=== PATIENT | male | born 1950 | race Caucasian/White ===

== ENCOUNTER 2019-10-15 12:48 | Outpatient (RCR) | payer MEDICARE, OTHER, SELFPAY ==
[2019-07-29 12:31] LABS: INR 2.1
[2019-08-25 13:28] LABS: INR 2.8; Prothrombin Time 28.9 Seconds (11.1-14.7)
[2019-09-20 15:30] LABS: Prothrombin Time 30.7 Seconds (11.1-14.7)
[2019-09-29 14:00] LABS: INR 2.5; Prothrombin Time 26.4 Seconds (11.1-14.7)
[2019-10-15 14:16] LABS: INR 2.8; Prothrombin Time 29.1 Seconds (11.1-14.7)
== END 2019-10-27 23:59 | disposition home or self-care (01) ==
LOC: ANHLAB 12:48
PROVIDERS: PCP Family Medicine; Visit Provider Physician Assistant
DX: Z51.81 Encounter for therapeutic drug level monitoring (principal); Z79.01 Long term (current) use of anticoagulants
CPT/HCPCS: 36415; 85610

== ENCOUNTER 2020-01-26 10:49 | Outpatient (RCR) | payer MEDICARE, OTHER, SELFPAY ==
[2019-11-10 13:26] LABS: INR 2.5; Prothrombin Time 26.4 Seconds (11.1-14.7)
[2019-12-08 10:56] LABS: INR 2.8; Prothrombin Time 29.1 Seconds (11.1-14.7)
[2020-01-20 12:35] LABS: INR 3.2; Prothrombin Time 31.8 Seconds (11.1-14.7)
[2020-01-26 11:34] LABS: INR 2.8; Prothrombin Time 28.6 Seconds (11.1-14.7)
== END 2020-02-08 23:59 | disposition home or self-care (01) ==
LOC: ANHLAB 10:49
PROVIDERS: PCP Family Medicine; Visit Provider Physician Assistant
DX: Z51.81 Encounter for therapeutic drug level monitoring (principal); Z79.01 Long term (current) use of anticoagulants
CPT/HCPCS: 36415; 85610

== ENCOUNTER 2020-03-09 11:54 | Outpatient (CLI) | payer MEDICARE, OTHER, SELFPAY ==
[2020-03-09 12:31] LABS: Hematocrit 43.3 % (42.0-52.0); Hemoglobin 14.7 g/dL (14.0-18.0); Mean Corpuscular HGB Conc 33.9 g/dl (32-36); Mean Corpuscular Hemoglobin 32.2 pg (26-34); Mean Platelet Volume 10.4 fl (7.4-10.4); Platelet Count Result 289 k/mm3 (150-375); Red Blood Count 4.56 M/mm3 (4.6-6.20); Red Cell Distribution Width 13.2 % (11.5-14.5); White Blood Count 6.4 K/mm3 (4.5-10.0)
[2020-03-09 12:33] LABS: Add Urine Microscopic? NO; Appearance Urine Clear (Clear); Bilirubin Urine Negative (Negative); Blood Urine Negative (Negative); Color Urine Yellow (Yellow); Glucose Urine UA Negative (Negative); Ketones Urine Negative (Negative); Leukocyte Esterase Ur Negative LEU/UL (NEGATIVE); Nitrate Urine Negative (Negative); Protein Urine Negative (Negative); Specific Grav Ur 1.019 (1.001-1.035); Urobilinogen Urine Negative mg/dL (<2.0)
[2020-03-09 12:54] LABS: Alanine Aminotransferase 29 U/L (4-50); Alkaline Phosphatase 74 U/L (38-126); Aspartate Amino Transferase 33 U/L (17-59); Bilirubin,Total 0.7 mg/dL (0.2-1.3); Blood Urea Nitrogen 20 mg/dL (9-20); Calcium 8.4 mg/dL (8.4-10.2); Carbon Dioxide 25 mmol/L (22-30); Chloride 109 mmol/L (98-107); Cholesterol 215 mg/dL (0-200); Estimated Glomerular Filt Rate > 60; Glucose 112 mg/dL (75-110); HDL Direct 37 mg/dL; Sodium 138 mmol/L (137-145); Triglycerides 93 mg/dL (<150)
[2020-03-09 13:05] LABS: LDL Cholesterol Direct 131 mg/dL
== END 2020-03-09 11:55 | disposition home or self-care (01) ==
PROVIDERS: Visit Provider Physician Assistant
DX: D64.9 Anemia, unspecified (principal); E04.1 Nontoxic single thyroid nodule; E78.5 Hyperlipidemia, unspecified; R31.9 Hematuria, unspecified; Z86.711 Personal history of pulmonary embolism
CPT/HCPCS: 36415; 80053; 80061; 81003; 84443; 85027; 85610

== ENCOUNTER 2020-04-12 11:47 | Outpatient (RCR) | payer MEDICARE, OTHER, SELFPAY ==
[2020-02-15 11:58] LABS: INR 3.7; Prothrombin Time 35.8 Seconds (11.1-14.7)
[2020-03-01 11:09] LABS: INR 3.8; Prothrombin Time 37.1 Seconds (11.1-14.7)
[2020-03-09 12:51] LABS: INR 2.5; Prothrombin Time 26.7 Seconds (11.1-14.7)
[2020-03-17 12:21] LABS: INR 2.9; Prothrombin Time 29.7 Seconds (11.1-14.7)
[2020-04-12 12:17] LABS: INR 2.6
== END 2020-05-15 23:59 | disposition home or self-care (01) ==
LOC: ANHLAB 11:47
PROVIDERS: Visit Provider Physician Assistant
DX: Z51.81 Encounter for therapeutic drug level monitoring (principal); Z79.01 Long term (current) use of anticoagulants
CPT/HCPCS: 36415; 85610

== ENCOUNTER 2020-07-20 11:21 | Outpatient (RCR) | payer MEDICARE, OTHER, SELFPAY ==
[2020-05-16 10:09] LABS: INR 1.9; Prothrombin Time 21.2 Seconds (11.1-14.7)
[2020-06-01 12:16] LABS: INR 2.1; Prothrombin Time 23.4 Seconds (11.1-14.7)
[2020-06-22 12:48] LABS: INR 2.1
[2020-07-20 11:47] LABS: INR 2.1; Prothrombin Time 23.1 Seconds (11.1-14.7)
== END 2020-08-14 23:59 | disposition home or self-care (01) ==
LOC: ANHLAB 11:21
PROVIDERS: Visit Provider Physician Assistant
DX: Z51.81 Encounter for therapeutic drug level monitoring (principal); Z79.01 Long term (current) use of anticoagulants
CPT/HCPCS: 36415; 85610

== ENCOUNTER 2020-11-08 11:39 | Outpatient (RCR) | payer MEDICARE, OTHER, SELFPAY ==
[2020-08-30 13:57] LABS: INR 1.9; Prothrombin Time 22.2 Seconds (11.1-14.7)
[2020-10-05 13:48] LABS: INR 1.6; Prothrombin Time 19.2 Seconds (11.1-14.7)
[2020-10-20 12:34] LABS: INR 1.4; Prothrombin Time 17.3 Seconds (11.1-14.7)
== END 2020-11-28 23:59 | disposition home or self-care (01) ==
LOC: ANHLAB 11:39
PROVIDERS: Family Medicine; Visit Provider Physician Assistant
DX: Z51.81 Encounter for therapeutic drug level monitoring (principal); Z79.899 Other long term (current) drug therapy
CPT/HCPCS: 36415; 85610

== ENCOUNTER 2020-12-06 11:31 | Outpatient (RCR) | payer MEDICARE, OTHER, SELFPAY ==
[2020-12-06 12:00] LABS: INR 2.1; Prothrombin Time 23.8 Seconds (11.1-14.7)
== END 2021-03-06 23:59 | disposition home or self-care (01) ==
LOC: ANHLAB 11:31
PROVIDERS: Visit Provider Physician Assistant
DX: Z51.81 Encounter for therapeutic drug level monitoring (principal); Z79.01 Long term (current) use of anticoagulants
CPT/HCPCS: 36415; 85610

== ENCOUNTER 2021-03-29 11:28 | Outpatient (RCR) | payer MEDICARE, OTHER, SELFPAY ==
[2021-01-18 12:21] LABS: INR 1.7; Prothrombin Time 20.2 Seconds (11.1-14.7)
[2021-02-23 13:16] LABS: INR 2.8; Prothrombin Time 30.4 Seconds (11.1-14.7)
[2021-03-29 12:41] LABS: INR 1.8; Prothrombin Time 20.4 Seconds (11.1-14.7)
== END 2021-04-18 23:59 | disposition home or self-care (01) ==
LOC: ANHLAB 11:28
PROVIDERS: Visit Provider Physician Assistant
DX: Z51.81 Encounter for therapeutic drug level monitoring (principal); Z79.01 Long term (current) use of anticoagulants
CPT/HCPCS: 36415; 85610

== ENCOUNTER 2021-03-30 11:59 | Outpatient (CLI) | payer MEDICARE, OTHER, SELFPAY ==
[2021-03-30 12:22] LABS: Add Urine Microscopic? NO; Appearance Urine Clear (Clear); Bilirubin Urine Negative (Negative); Blood Urine Negative (Negative); Color Urine Yellow (Yellow); Glucose Urine UA Negative (Negative); Ketones Urine Negative (Negative); Leukocyte Esterase Ur Negative LEU/UL (NEGATIVE); Nitrate Urine Negative (Negative); Protein Urine Negative (Negative); Specific Grav Ur 1.018 (1.001-1.035); Urobilinogen Urine Negative mg/dL (<2.0)
[2021-03-30 12:23] LABS: Hemoglobin 14.3 g/dL (14.0-18.0); Mean Corpuscular HGB Conc 33.3 g/dl (32-36); Mean Corpuscular Hemoglobin 31.7 pg (26-34); Mean Corpuscular Volume 95.3 fl (80-100); Mean Platelet Volume 9.8 fl (7.4-10.4); Platelet Count Result 276 k/mm3 (150-375); Red Blood Count 4.51 M/mm3 (4.6-6.20); Red Cell Distribution Width 13.2 % (11.5-14.5); White Blood Count 6.1 K/mm3 (4.5-10.0)
[2021-03-30 12:42] LABS: Alanine Aminotransferase 29 U/L (4-50); Alkaline Phosphatase 63 U/L (38-126); Anion Gap 6 mmol/L (8-16); Aspartate Amino Transferase 36 U/L (17-59); Bilirubin,Total 1.2 mg/dL (0.2-1.3); Blood Urea Nitrogen 17 mg/dL (9-20); Calcium 8.8 mg/dL (8.4-10.2); Carbon Dioxide 25 mmol/L (22-30); Chloride 109 mmol/L (98-107); Cholesterol 204 mg/dL (0-200); Estimated Glomerular Filt Rate 54; Glucose 111 mg/dL (75-110); HDL Direct 48 mg/dL; Sodium 140 mmol/L (137-145); Triglycerides 95 mg/dL (<150)
[2021-03-30 12:53] LABS: LDL Cholesterol Direct 98 mg/dL
[2021-03-30 12:55] LABS: Hemoglobin A1C 5.9 % (<5.7)
== END 2021-03-30 12:00 | disposition home or self-care (01) ==
LOC: ANHLAB 12:03
PROVIDERS: Visit Provider Family Medicine
DX: E78.5 Hyperlipidemia, unspecified (principal); R73.01 Impaired fasting glucose; R53.83 Other fatigue; Z00.00 Encounter for general adult medical examination without abnormal findings
CPT/HCPCS: 36415; 80053; 80061; 81003; 83036; 84443; 85027

== ENCOUNTER 2021-07-03 13:35 | Outpatient (RCR) | payer MEDICARE, SELFPAY ==
[2021-04-26 12:29] LABS: INR 3.6; Prothrombin Time 34.9 Seconds (11.1-14.7)
[2021-05-09 12:08] LABS: Prothrombin Time 22.4 Seconds (11.1-14.7)
[2021-06-06 16:01] LABS: INR 2.1
[2021-07-03 14:23] LABS: Prothrombin Time 22.5 Seconds (11.1-14.7)
== END 2021-07-25 23:59 | disposition home or self-care (01) ==
LOC: ANHLAB 13:35
PROVIDERS: PCP Family Medicine; Visit Provider Physician Assistant
DX: Z51.81 Encounter for therapeutic drug level monitoring (principal); Z79.01 Long term (current) use of anticoagulants
CPT/HCPCS: 36415; 85610

== ENCOUNTER 2021-08-09 11:42 | Outpatient (RCR) | payer MEDICARE, OTHER, SELFPAY ==
[2021-08-09 12:47] LABS: INR 2.4; Prothrombin Time 25.5 Seconds (11.1-14.7)
== END 2021-11-07 23:59 | disposition home or self-care (01) ==
LOC: ANHLAB 11:42
PROVIDERS: PCP Family Medicine; Visit Provider Family Medicine
DX: Z51.81 Encounter for therapeutic drug level monitoring (principal); Z79.01 Long term (current) use of anticoagulants
CPT/HCPCS: 36415; 85610

== ENCOUNTER → 2021-10-17 08:31 | Outpatient (CLI) | payer MEDICARE, OTHER, SELFPAY ==
[2021-10-17 13:51] LABS: Influenza A QL RT-PCR Negative (Negative); Influenza B QL RT-PCR Negative (Negative); SARS-CoV-2 RNA PCR Negative
== END ==
PROVIDERS: PCP Family Medicine; Visit Provider Physician Assistant
DX: R68.89 Other general symptoms and signs (principal); M79.10 Myalgia, unspecified site; Z20.822 Contact with and (suspected) exposure to COVID-19
CPT/HCPCS: 87502; C9803; U0003; U0005

== ENCOUNTER 2021-12-17 12:11 | Outpatient (RCR) | payer MEDICARE, OTHER, SELFPAY ==
[2021-09-19 11:47] LABS: INR 1.6; Prothrombin Time 18.3 Seconds (11.1-14.7)
[2021-09-27 13:41] LABS: INR 2.2; Prothrombin Time 24.2 Seconds (11.1-14.7)
[2021-11-07 10:49] LABS: INR 2.4; Prothrombin Time 25.6 Seconds (11.1-14.7)
[2021-12-17 12:39] LABS: INR 2.5
== END 2021-12-18 23:59 | disposition home or self-care (01) ==
LOC: ANHLAB 12:11
PROVIDERS: PCP Family Medicine; Visit Provider Family Medicine
DX: Z51.81 Encounter for therapeutic drug level monitoring (principal); Z79.01 Long term (current) use of anticoagulants
CPT/HCPCS: 36415; 85610

== ENCOUNTER 2022-01-29 18:40 | Observation (INO) | payer MEDICARE, OTHER, SELFPAY ==
--- NOTE | ~2022-01-29 | US_ITS ---
US venous doppler [facility] DATE: 01/30/2022 11:06 INDICATION: Left calf pain. History of deep venous anastomosis 10 years ago. TECHNIQUE: Real-time and color flow imaging and Doppler analysis of the veins of both lower extremiti es COMPARISON: 09/26/2016 right lower extremity venous duplex examination 03/09/2014 bilateral lower extremity venous duplex examination FINDINGS: Right leg: Right greater saphenous vein is patent. There is spontaneous and phasic flow and normal augmentation and color flow signal and normal compression of the deep veins of the right lower extremity. Left leg: The left greater saphenous vein is patent. There is spontaneous and phasic flow and normal augmentati on and color flow signal and normal compression of the left femoral, popliteal and posterior tibial v eins. There is incomplete compression of the left peroneal trunk IMPRESSION: Left peroneal trunk partial thrombosis Reviewed, dictated and finalized at [facility]. Reviewed, dictated and finalized at location B.
--- NOTE | ~2022-01-29 | CT_ITS ---
EXAMINATION: CT brain wo con DATE: 01/29/2022 19:05 INDICATION: syncopal episode/hi/coumadin TECHNIQUE: Computed tomography (CT) of the head was performed without intravenous contrast. The mA wa s adjusted according to patient size. Iterative reconstruction technique was employed. The dose-lengt h product was 605.33 mGy-cm. COMPARISON: 01/21/2004. FINDINGS: No acute intracranial hemorrhage or extra-axial fluid collection. No hydrocephalus, mass, or herniation. No acute ischemic infarct. Unremarkable dural venous sinus attenuation. No acute osseous abnormality. The aerated spaces are clear. Moderate atrophy. Mild chronic white matter change. Intracranial arterial calcifications. IMPRESSION: No acute intracranial process. Reviewed, dictated and finalized at location K.
--- NOTE | ~2022-01-29 | XR_ITS ---
EXAMINATION: XR knee LT 3V DATE: 01/31/2022 13:42 INDICATION: Left knee pain. TECHNIQUE: 3 views of left knee were obtained. COMPARISON: None. FINDINGS: There is varus angulation at the knee. No fracture. 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 There is a modera te-sized knee joint effusion. There is a loose body in the knee joint posteriorly. IMPRESSION: 1. Moderate left knee osteophytes. 2. Moderate-sized left knee joint effusion with loose body. Reviewed, dictated and finalized at location A.
--- NOTE | ~2022-01-29 | CT_ITS ---
Patient Name: Patient Name MR#: Patient MRN Accession#: Accession Numbers EXAMINATION: CTA brain carotid DATE: 01/30/2022 18:28 INDICATION: Occluded vertebral artery on prior carotid ultrasound. Acute left cerebellar infarction o n prior brain MR. TECHNIQUE: Computed tomographic angiography (CTA) of the head was performed without and with 100 mL O mnipaque-350 intravenous contrast. CTA of the neck was performed with intravenous contrast. The dose- length product was 1845.80 mGy-cm. Maximum intensity projection and volume rendered 3D-reconstruction s were created by the technologist on a separate workstation. COMPARISON: Carotid ultrasound 01/30/2022. MR brain, 01/30/2022. CT brain 01/29/2022. FINDINGS: CTA NECK: Aortic arch and proximal great vessels: Unremarkable. Right common carotid, carotid bifurcation, and internal carotid artery: Minimal minimal noncalcified plaque in the common carotid. Minimal calcified and noncalcified plaque in the carotid bulb.There is 0% stenosis of the proximal right internal carotid artery relative to normal distal artery lumen diam eter (NASCET criteria). Left common carotid, carotid bifurcation, and internal carotid artery: Minimal minimal noncalcified p laque in the common carotid. Minimal calcified and noncalcified plaque in the carotid bulb. There is 0 % stenosis of the proximal left internal carotid artery relative to normal distal artery lumen diam eter (NASCET criteria). Vertebral arteries: Calcified and noncalcified plaque at the origin of the right vertebral artery cau sing approximately 50% stenosis, otherwise patent. The right vertebral artery is dominant. Occlusion of the left vertebral artery 1 cm distal to its takeoff. Reconstitution of the left vertebral artery at the level of C1 with diminished vessel caliber. Other findings: Redemonstration of the right thyroid mass, prior recommendations are unchanged. CTA HEAD: No large vessel occlusion, aneurysm, high flow vascular malformation, nidus or extravasation. CT brain: Acute left cerebellar infarct. No intracranial hemorrhage, mass, or hydrocephalus. Stable chronic fin dings. IMPRESSION: 1. CTA head: Negative for acute intracranial large vessel occlusion. Acute left cerebellar infarct a s noted in the previous MR brain. 2. CTA neck: Occlusion of the left vertebral artery, 1 cm distal to its origin to the level of C1. 3. 0% stenosis at the carotid bifurcations. Reviewed, dictated and finalized at location K. IMPRESSION: 1. CTA head: Negative for acute intracranial large vessel occlusion. Acute lef t cerebellar infarct as noted in the previous MR brain. 2. CTA neck: Occlusion of the left vertebral artery, 1 cm distal to its origin to the level of C1. 3. 0% stenosis at the carotid bifurcations.
--- NOTE | ~2022-01-29 | CT_ITS ---
EXAMINATION: CT cervical spine wo con DATE: 01/29/2022 19:05 INDICATION: fall/hi/coumain TECHNIQUE: Computed tomography (CT) of the cervical spine was performed without intravenous contrast. Automated exposure control and iterative reconstruction technique were employed. The dose-length pro duct was 511.60 mGy-cm. COMPARISON: None FINDINGS: Counting reference: Craniocervical junction. There are seven cervical type vertebral bodies. Anatomic Variants: None. Vertebral Body Alignment: 2 mm anterolisthesis of C3 on C4, likely on a degenerative basis. Focal re versal of the cervical lordosis centered at C4-5. Craniocervical junction: Moderate degenerative change. Alignment intact. Osseous structures/fracture: No evidence of a lytic or blastic process in the visualized spine. N o evidence of acute fracture. Cervical soft tissues: 3.2 cm heterogeneous right thyroid lobe mass. Likely dilation of the aortic arch, incompletely evaluated. Degenerative changes: Multilevel severe degenerative disc disease. Multilevel severe bilateral neural foraminal narrowing. No severe central canal stenosis. IMPRESSION: No acute fracture or traumatic malalignment in the cervical spine. 3.2 cm right thyroid lobe mass, re commend nonemergent outpatient thyroid ultrasound for further evaluation. Reviewed, dictated and finalized at location K. IMPRESSION: No acute fracture or traumatic malalignment in the cervical spine. 3.2 cm right thyroid lobe mass, recommend nonemergent outpatient thyroid ultrasound for fur ther evaluation.
--- NOTE | ~2022-01-29 | MR_ITS ---
EXAMINATION: MR brain/brain stem wo con DATE: 01/30/2022 07:33 INDICATION: Status post fall. Patient on Coumadin. TECHNIQUE: Magnetic resonance imaging (MRI) of the brain and brainstem was performed without intraven ous contrast. Sequences included sagittal and axial T1-weighted SE, axial diffusion-weighted FS SE, a xial T2*-weighted GRE, axial T2-weighted FLAIR Propeller, and axial T2-weighted Propeller. Apparent d iffusion coefficient (ADC) maps were created. COMPARISON: CT dated 01/29/2022. FINDINGS: There is an acute left cerebellar infarction. Brain parenchymal volume is normal. There are scattered mild periventricular and subcortical white matter changes, most likely related to small ve ssel ischemic disease (microangiopathy). No ventriculomegaly or midline shift. Midline sagittal image s are normal without abnormality of the craniovertebral junction. Sella turcica is unremarkable. Sinu ses are unremarkable. Orbits are symmetric. Flow-voids in the major intracerebral arteries are unrema rkable. IMPRESSION: 1. Acute left cerebellar infarction. 2: Chronic age-related findings. Dr. Oren Ornelas discussed with the patient's nurse, Kelly, at 01/30/2022 08:17 CDT. Reviewed, dictated and finalized at location A. IMPRESSION: 1. Acute left cerebellar infarction. 2: Chronic age-related findings. Dr. Oren Ornelas discussed with the patient's nurse, Kelly, at 01/30/2022 08:17 CD T.
--- NOTE | ~2022-01-29 | US_ITS ---
EXAMINATION: US carotid duplex BI DATE: 01/30/2022 11:11 INDICATION: Incomplete. CVA. TECHNIQUE: Grayscale, color Doppler, and pulsed Doppler images of the cervical carotid arteries were obtained. The degree of vessel stenosis is placed in one of the following categories: normal, <50%, 5 0-69%, >=70% but less than near-occlusion, near-occlusion, or total occlusion. Note that percent sten osis relative to normal distal artery lumen diameter is indirectly measured from velocity measurement s as described by Saran, et al. Radiology 2003; 229:340-346. Notes: Normal: Peak systolic velocity <125 centimeters/sec and no plaque <50%. Peak systolic velocity <125 ( EDV <40; ICA/CCA PSV ratio <2.0; used these factors only a tandem lesions or low cardiac output or co ntralateral disease) 50-69 %: PSV 125-230 (EDV 40-100; ratio 2-4) >= 70% but less than near occlusion: PSV greater than 230 (EDV > 100; ratio> 4.0) Near Occlusion: PSV that is variable; markedly narrowed lumen Occlusion: Absent flow on color/spectral Doppler and no lumen on jj scale. COMPARISON: None. FINDINGS: There is a complex 4 cm right thyroid mass. RIGHT: The right common carotid artery (CCA) peak systolic velocity (PSV) is 74 cm/s. The right internal car otid artery (ICA) PSV is 82 cm/s. The right ICA end-diastolic velocity (EDV) is 20 cm/s. The right IC A/CCA PSV ratio is 1.1. The external carotid artery (ECA) PSV is 134 cm/s. There is antegrade flow in the right vertebral artery. LEFT: The left CCA PSV is 85 cm/s. The left ICA PSV is 80 cm/s. The left ICA EDV is 23 cm/s. The left ICA/C CA PSV ratio is 0.9. The ECA PSV is 126 cm/s. No flow identified in the left vertebral artery which appears occluded. IMPRESSION: 1. Less than 50% stenosis in the right internal carotid artery by sonographic criteria. 2. Less than 50% stenosis in the left internal carotid artery by sonographic criteria. 3: Occluded left vertebral artery. 4: Complex 4 cm right thyroid mass. Dedicated right thyroid ultrasound recommended for further asses sment. Reviewed, dictated and finalized at location A. IMPRESSION: 1. Less than 50% stenosis in the right internal carotid artery by sonographic c riteria. 2. Less than 50% stenosis in the left internal carotid artery by sonographic cr iteria. 3: Occluded left vertebral artery. 4: Complex 4 cm right thyroid mass. Dedicated right thyroid ultrasound recomme nded for further assessment.
[2022-01-29 18:48] VITALS: BP 188/99; PULSE 62; RESP 20; O2SAT 95
--- NOTE | 2022-01-29 18:57 | ECG_ITS ---
Measurements Intervals [place] Rate: 62 P: 15 WV: 176 QRS: -16 QRSD: 101 T: 22 QT: 418 QTc: 426 Interpretive Statements SINUS RHYTHM NORMAL ECG Electronically Signed On 01-29-2022 20:04:53 CDT by Miguel Angel Pollack D.O.
[2022-01-29 19:11] VITALS: PULSE 62
[2022-01-29 19:27] LABS: Basophils Absolute Auto 0.1 K/mm3 (0.0-0.1); Basophils Percent Auto 0.8 % (0.2-1.2); Eosinophils Absolute Auto 0.2 K/mm3 (0-0.3); Eosinophils Percent Auto 2.5 % (0-4.4); Hemoglobin 15.1 g/dL (14.0-18.0); Immature Granulocyte Absolute 0.03 K/mm3 (0.00-0.031); Immature Granulocyte Percent A 0.4 % (0-0.5); Lymphocytes Absolute Auto 2.96 K/mm3 (0.9-3.2); Mean Corpuscular HGB Conc 33.6 g/dl (32-36); Mean Corpuscular Hemoglobin 31.9 pg (26-34); Mean Corpuscular Volume 94.9 fl (80-100); Mean Platelet Volume 9.7 fl (7.4-10.4); Monocytes Absolute Auto 0.8 K/mm3 (0.1-0.6); Neutrophils Absolute Auto 4.4 K/mm3 (1.3-6.7); Neutrophils Percent Auto 52.3 % (45.5-73.1); Platelet Count Result 308 k/mm3 (150-375); Red Blood Count 4.74 M/mm3 (4.6-6.20); Red Cell Distribution Width 13.2 % (11.5-14.5); White Blood Count 8.5 K/mm3 (4.5-10.0)
[2022-01-29 19:29] VITALS: BP 231/103; PULSE 56; RESP 26; O2SAT 94
--- NOTE | 2022-01-29 19:29 | ED.GENADULT ---
HPI - General Adult General Chief complaint: Syncope Stated complaint: SYNCOPAL EPISODE Time Seen by Provider: 01/29/22 18:53 Source: patient Mode of arrival: EMS Limitations: no limitations History of Present Illness HPI narrative: 71-year-old male presented to the emergency department for evaluation after having a syncopal episode. Patient states that he was feeling well today prior to the episode. He states that he did had a brief onset of lightheaded and dizziness and then had a syncopal episode. Patient did fall back and strike his head. Patient thinks he was unconscious for approximately 1 minute. Patient does take Coumadin due to prior history of PE or DVT. Patient does have a small abrasion to the anterior scalp. Also has a skin tear to his left lateral elbow. Patient's only complaint is headache at this time. Upon arrival to the emergency room patient has nauseous and diaphoretic. Patient denies any associated chest pain or shortness of breath. Patient denies any abdominal pain. Patient denies any prior history of LA or CVA. Related Data Home Medications Medication Instructions Recorded Confirmed warfarin 2 mg PO 4XW 01/29/22 01/30/22 Caltrate with Vitamin D3 1 pill PO DAILY 01/30/22 01/30/22 Allergies Allergy/AdvReac Type Severity Reaction Status Date / Time Penicillins Allergy Unknown Unknown Verified 04/03/21 16:32 Review of Systems Review of Systems: CONSTITUTIONAL: Denies fever, chills, or sweats. EYES: Denies visual changes, redness, or discharge. ENT: Denies rhinorrhea, congestion, sore throat, or otalgia. CARDIOVASCULAR: Denies chest pain, palpitations, or edema. RESPIRATORY: Denies cough or dyspnea. GASTROINTESTINAL: See HPI GENITOURINARY: Denies dysuria or hematuria. SKIN: Denies rash or itching. MUSCULOSKELETAL: Denies back pain, joint pain, or myalgia. NEUROLOGIC: Headache but denies any numbness or weakness. [facility] Past Medical History Medical History (Updated 01/30/22 @ 07:32 by Cleve Dunawya MD) HLD (hyperlipidemia) 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 glucose) half-way (current) use of anticoagulants Personal history of pulmonary embolism Family History Family History (Updated 01/30/22 @ 00:59 by Seble Guzman RN) Mother Stomach cancer Acute myocardial infarction Congestive heart failure Hypertension Sibling Acute myocardial infarction Diabetes mellitus Leukemia Dementia Kidney disease Social History Social History (Updated 04/03/21 @ 16:32 by Deb Vallejo) Smoking status: Former smoker Second hand tobacco smoke exposure: No Alcohol intake: never Substance use: never Substance use type: does not use Gender identity (if verbalized by the patient): Male Sexual Orientation (if Verbalized by the Patient): Straight or Heterosexual Spiritual care concerns: No Exam Narrative: APPEARANCE: Diaphoretic and ill-appearing HEAD: normocephalic, atraumatic. EYES: PERRLA/EOMI, conjunctivae clear. NOSE: Normal no drainage EARS:TMS clear with good light reflex. THROAT: Pharynx clear, no exudate. NECK: Supple. No adenopathy, no masses. RESPIRATORY: Airway patent, respirations nonlabored. Clear to auscultation bilaterally, no rales, rhonchi, wheezing. CARDIOVASCULAR: Regular rate and rhythm without murmurs rubs or gallops. ABDOMINAL: Soft, nontender, nondistended, normal bowel sounds MUSCULOSKELETAL: Moves all extremities. Strength/ROM intact, No edema, No calf tenderness. NEURO: Alert. Cranial nerves II through XII intact. Grossly intact SKIN: Warm, dry. Normal Color PSYCHIATRIC: Normal affect/mood. Course Course Emergency Course: Due to the patient having no prior history of syncope Case discussed with the hospitalist and patient was admitted for further syncopal work-up. Patient was updated on the results of his work-up and plan for admission. All questions and concerns were addressed. Patient was afebrile with no leukocytosis. Patient is on Cou
[2022-01-29] MEDS: ONDANSETRON INJ 4 MG/2 ML VIAL IV PUSH (19:30)
[2022-01-29] MEDS: SODIUM CHLORIDE 0.9% IV 1,000 ML 150 ML IV CONT (19:30)
[2022-01-29 19:32] VITALS: BP 180/92
[2022-01-29 19:38] LABS: Lactic Acid Reflex 1.2 mmol/L (0.7-2.0)
[2022-01-29 19:47] LABS: Alanine Aminotransferase 34 U/L (6-50); Albumin Level 4.2 g/dL (3.5-5.1); Alkaline Phosphatase 79 U/L (38-126); Anion Gap 7 mmol/L (8-16); Aspartate Amino Transferase 42 U/L (17-59); Blood Urea Nitrogen 23 mg/dL (9-20); Calcium 8.8 mg/dL (8.4-10.2); Carbon Dioxide 23 mmol/L (22-30); Chloride 107 mmol/L (98-107); Estimated CRCL calculation 63 ml/min; Estimated Glomerular Filt Rate > 60; Glucose 131 mg/dL (65-110); Potassium 3.8 mmol/L (3.4-5.0); Sodium 137 mmol/L (137-145)
[2022-01-29 19:53] LABS: INR 2.6; Prothrombin Time 26.8 Seconds (11.1-14.7)
[2022-01-29] MEDS: METOCLOPRAMIDE HCL INJ 10 MG/2 ML VIAL IV PUSH (19:55)
[2022-01-29] MEDS: diphenhydrAMINE HCl INJ 50 MG/ML VIAL 25 MG IV PUSH (19:55)
[2022-01-29 20:59] LABS: Appearance Urine Clear (Clear); Bilirubin Urine Negative (Negative); Color Urine Yellow (Yellow); Glucose Urine UA Negative (Negative); Ketones Urine Negative (Negative); Leukocyte Esterase Ur Negative LEU/UL (Negative); Nitrate Urine Negative (Negative); Protein Urine Negative (Negative); Specific Grav Ur 1.025 (1.001-1.035); Urobilinogen Urine 0.2 mg/dL (<2.0); pH Urine 5.5 (5.0-9.0)
[2022-01-29 21:01] LABS: Bacteria Urine Trace /hpf; Mucus Urine Rare /lpf; RBC Urine 0-2 /hpf (0-2); Squamous Epithelial Cell Urine Rare /hpf (Few); WBC Urine 0-3 /hpf
[2022-01-29 21:09] LABS: Add Urine Microscopic? YES; Blood Urine Trace-Intact (Negative)
--- NOTE | 2022-01-29 22:01 | PM.IMHP ---
H&P: HPI History of Present Illness Date/Time: 01/29/22 22:01 Chief Complaint: Syncope Narrative: This is a 71-year-old male with 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 Patient presented to the emergency room after he had a syncopal episode while standing at some sort of a dog activity related event patient has been his usual state of health up until these he denied any warning signs is states that when he woke up he was already in on the ambulance on the way to the hospital. Patient denies any sphincter incontinence, no chest pain, no dizziness, breathing to patient was diaphoretic at that time, patient denies any paroxysmal nocturnal dyspnea, orthopnea, leg swelling or pedal swelling, no fevers, no rigors, no chills, no cough, no sputum production, no palpitations. Preliminary workup was significant for blood pressure at the time of arrival systolic blood pressure of 180-230 and diastolic 90-100. A CT of the head and cervical spine did not show any acute abnormalities an EKG showed normal sinus rhythm. Chemistry and CBC panels were all within normal limits. Patient has been admitted for further evaluation, management and treatment. Review of Systems Review of Systems: Syncope. Constitutional: Constitutional: Denies chills, Denies fatigue, Denies fever(s), Denies malaise, Denies night sweats and Denies weakness Eyes: Eyes: Denies change in vision ENT: Denies dysphagia, Denies vertigo, Denies dizziness, Denies nasal congestion, Denies nasal discharge, Denies nasal obstruction and Denies odynophagia Cardiovascular: Cardiovascular: Reports syncope, Denies pedal edema, Denies irregular heart rhythm, Denies leg edema, Denies lightheadedness, Denies radiating jaw, neck or arm pain, Denies palpitations, Denies dyspnea on exertion, Denies orthopnea and Denies paroxysmal nocturnal dyspnea Respiratory: Respiratory: Denies cough Gastrointestinal: Gastrointestinal: Denies abdominal pain, Denies dyspepsia, Denies heartburn, Denies nausea and Denies vomiting Genitourinary: Genitourinary: Denies dysuria Musculoskeletal: Musculoskeletal: Denies arthralgias and Denies joint swelling Integumentary/Breasts: Skin/Breast: Denies rash Neurologic: Denies focal weakness and Denies Sensory deficit (Neuro) Psychiatric: Psychiatric: Reports no additional psychiatric complaints and Reports as per HPI Endocrine: Endocrine: Denies cold intolerance, Denies flushing, Denies heat intolerance, Denies polyphagia, Denies polydipsia and Denies palpitations Hematologic/Lymphatic: Hematologic/Lymphatic: Reports no additional hematologic/lymphatic complaints and Reports as per HPI Allergic/Immunologic: Allergic/Immunologic: Reports no additional allergic/immunologic complaints and Reports as per HPI PMF Past Medical History Medical History (Updated 01/30/22 @ 01:15 by Fatoumata Frost MD) HLD (hyperlipidemia) 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 glucose) 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 Personal history of pulmonary embolism Family History Family History (Updated 01/30/22 @ 00:59 by Seble Guzman RN) Mother Stomach cancer Acute myocardial infarction Congestive heart failure Hypertension Sibling Acute myocardial infarction Diabetes mellitus Leukemia Dementia Kidney disease Social History Social History (Updated 04/03/21 @ 16:32 by Deb Vallejo) Smoking status: Former smoker Second hand tobacco smoke exposure: No Alcohol intake: never Substance use: never Substance use type: does not use Gender identity (if verbalized by the patient): Male Sexual Orientation (if Verbalized by the Patient): Straight or Heterosexual Spiritual care concerns: No Meds Home Medications and Allergies Home Medications Medication Instructions Recorded Confirmed Type warfarin 2 mg tablet See Rx Instructions .ROUTE 10/29/21 Rx .COMPLEX #90 tablet warfarin 01/29/22
[2022-01-29 22:20] LABS: Magnesium 1.9 mg/dL (1.6-2.3)
[2022-01-29 22:33] LABS: Troponin I < 0.012 ng/mL (0.000-0.034)
[2022-01-29 23:30] VITALS: BP 157/90; PULSE 73; RESP 20; O2SAT 95
[2022-01-29 23:47] LABS: SARS-CoV-2 RNA PCR Negative
[2022-01-30] VITALS (11 sets, daily range): BP systolic 137–151; BP diastolic 76–85; PULSE 65–78; RESP 18–20; TEMP 36.5–36.8; O2SAT 95–98
--- NOTE | 2022-01-30 | ECHO_ITS ---
Patient Info Name: Rocky Pisano Age: 71 years : 1950 Gender: Male Ht: 70 in Wt: 219 lbs BSA: 2.24 m2 HR: 72 bpm BP: 143 / 76 mmHg Heart Rhythm: Sinus Rhythm Technical Quality: Fair Exam Date: 01/30/2022 9:30 AM Exam Location: Echo Lab Patient Status: Outpatient Admit Date: 01/29/2022 Staff Ordering Physician: Fatoumata Frost MD Radiological Defense Officer: Key Pastor RDCS Attending Provider: Fatoumata Frost MD Referring Physician: Santosh RUTH; Exam Type: CA echo doppler color flow Study Info Indications - syncope Complete two-dimensional, color flow and Doppler transthoracic echocardiogram is performed. Summary 1. Complete two-dimensional, color flow and Doppler transthoracic echocardiogram is performed. 2. Left ventricular chamber dimension is normal. 3. Left ventricular systolic function is normal, estimated at 65-70%. 4. There is moderately increased left ventricular wall thickness. 5. The left ventricular diastolic function is grade I diastolic dysfunction. 6. E/e' 7 is not elevated. 7. No pulmonary hypertension, estimated pulmonary arterial systolic pressure is 27 mmHg. 8. There is mild pulmonic regurgitation. Left Ventricle E/e' 7 is not elevated. Left ventricular chamber dimension is normal. Left ventricular systolic function is normal, estimated at 65-70%. There is moderately increased left ventricular wall thickness. The left ventricular diastolic function is grade I diastolic dysfunction. Right Ventricle Right ventricular systolic function is normal and with normal TAPSE 2.1 cm. Right ventricular chamber dimension is normal. Left Atria Left atrial chamber dimension is normal. Right Atria Right atrial chamber dimension is normal. Aortic Valve The aortic valve is trileaflet. There is no aortic valve stenosis. There is no aortic valve regurgitation. Pulmonic Valve There is mild pulmonic regurgitation. Mitral Valve There is no mitral valve stenosis. There is no mitral valve regurgitation. Tricuspid Valve There is no tricuspid valve regurgitation. No pulmonary hypertension, estimated pulmonary arterial systolic pressure is 27 mmHg. Pericardium/Pleural There is no pericardial effusion. Inferior Vena Cava Inferior vena cava is not well visualized. Aorta The aortic root size at the sinus of Valsalva is normal. Left Ventricular Outflow Tract Name Value Normal LVOT 2D LVOT Diameter 2.1 cm LVOT Doppler LVOT Peak Gradient 5 mmHg LVOT Mean Gradient 2 mmHg LVOT VTI 21 cm LVOT VTI/AV VTI Ratio 0.9 LVOT Stroke Volume 76 ml LVOT CO 5.0 l/min LVOT CI 2.2 l/min/m2 Pulmonic Valve Name Value Normal RVOT Doppler
--- NOTE | 2022-01-30 00:48 | ADMGEN ---
This patient, Rocky Pisano, was admitted to 2 Medical Room 257-01. Patient/family oriented to hospital policies and general routines including ID bracelet, bed and alarms, visiting hours, pain management, procedures, bathroom and other care routines, personal items, smoking policy, room service/diet, and visiting hours. Information on how to activate the Rapid Response Team has been discussed. Patient/Family are encouraged to report perceived risks to care and to ask questions if they do not understand what they are told or what they should do.
[2022-01-30] MEDS: lisinopriL 10 MG TABLET PO ×2 (01:48→11:16)
--- NOTE | 2022-01-30 08:30 | P.PNIM_ITS ---
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 Status: Chronic Assessment and Plan: * INR is therapeutic * Continue Warfarin (5) Pulmonary embolus: Code(s): I26.99 - Other pulmonary embolism without acute cor pulmonale Status: Acute Assessment and Plan: * Remote history of pulmonary embolus * Complaints of calf pain * Venous doppler ordered (6) 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 glucose): Code(s): R73.01 - Impaired fasting glucose Status: Acute Assessment and Plan: * Follow-up in outpatient setting Time Spent With Patient Time with patient: Greater than 35 minutes Subjective Date/time seen: 01/30/22 0830 Interval history: Date/Time: 01/29/22 22:01 Narrative: This is a 71-year-old male with 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 Patient presented to the emergency room after he had a syncopal episode while standing at some sort of a dog activity related event patient has been his usual state of health up until these he denied any warning signs is states that when he woke up he was already in on the ambulance on the way to the hospital. Patient denies any sphincter incontinence, no chest pain, no dizziness, breathing to patient was diaphoretic at that time, patient denies any paroxysmal nocturnal dyspnea, orthopnea, leg swelling or pedal swelling, no fevers, no rigors, no chills, no cough, no sputum production, no palpitations. Preliminary workup was significant for blood pressure at the time of arrival systolic blood pressure of 180-230 and diastolic 90-100. A CT of the head and cervical spine did not show any acute abnormalities an EKG showed normal sinus rhythm. Chemistry and CBC panels were all within normal limits. Patient has been admitted for further evaluation, management and treatment. Date/Time: 01/30/22 08:30 Patient stated that he is doing ok. He denies any chest pain, shortness of breath, nausea, vomiting, diarrhea, constipation, weakness, or fatigue. He did state that he feels he is back to his normal. He is also complaining of left sided calf pain. He stated that it was similar to the feel when he had a DVT in the past. His last known normal was at 1830. NIH scale is 0 today. BP is therapeutic today 150/70s. Echo, Carotid doppler, and venous doppler ordered.
--- NOTE | 2022-01-30 08:30 | PM.IMPN ---
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 Status: Chronic Assessment and Plan: INR is therapeutic Continue Warfarin (5) Pulmonary embolus: Code(s): I26.99 - Other pulmonary embolism without acute cor pulmonale Status: Acute Assessment and Plan: Remote history of pulmonary embolus Complaints of calf pain Venous doppler ordered (6) 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 glucose): Code(s): R73.01 - Impaired fasting glucose Status: Acute Assessment and Plan: Follow-up in outpatient setting Time Spent With Patient Time with patient: Greater than 35 minutes Subjective Date/time seen: 01/30/22 0830 Interval history: Date/Time: 01/29/22 22:01 Narrative: This is a 71-year-old male with 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 Patient presented to the emergency room after he had a syncopal episode while standing at some sort of a dog activity related event patient has been his usual state of health up until these he denied any warning signs is states that when he woke up he was already in on the ambulance on the way to the hospital. Patient denies any sphincter incontinence, no chest pain, no dizziness, breathing to patient was diaphoretic at that time, patient denies any paroxysmal nocturnal dyspnea, orthopnea, leg swelling or pedal swelling, no fevers, no rigors, no chills, no cough, no sputum production, no palpitations. Preliminary workup was significant for blood pressure at the time of arrival systolic blood pressure of 180-230 and diastolic 90-100. A CT of the head and cervical spine did not show any acute abnormalities an EKG showed normal sinus rhythm. Chemistry and CBC panels were all within normal limits. Patient has been admitted for further evaluation, management and treatment. Date/Time: 01/30/22 08:30 Patient stated that he is doing ok. He denies any chest pain, shortness of breath, nausea, vomiting, diarrhea, constipation, weakness, or fatigue. He did state that he feels he is back to his normal. He is also complaining of left sided calf pain. He stated that it was similar to the feel when he had a DVT in the past. His last known normal was at 1830. NIH scale is 0 today. BP is therapeutic today 150/70s. Echo, Carotid doppler, and venous doppler ordered. Talked to Dr Zavaleta from [facility] about the patient. He wanted the CTA of the head a neck done and would like to review imaging for further evaluation. Received further recommendations from Dr. Zavaleta at [facility]. He is stating that he really needs a good follow up outpatient. He reviewed images and stated that he does not see any emergent needs at this time. He also agrees with current anticoagulation regimen. Dr. Thornton also agrees with current plan and agrees
[2022-01-30 09:03] LABS: Cholesterol 187 mg/dL (0-200); HDL Direct 47 mg/dL; Triglycerides 64 mg/dL (<150)
[2022-01-30 09:14] LABS: LDL Cholesterol Direct 109 mg/dL
--- NOTE | 2022-01-30 09:32 | PCOTNOTE ---
Attempted OT evaluation, patient currently having test completed, will follow.
--- NOTE | 2022-01-30 09:34 | PCPTNOTE ---
Attempted PT evaluation, patient currently having test completed, will follow.
--- NOTE | 2022-01-30 10:31 | PCOTNOTE ---
Attempted OT evaluation, patient is currently off the unit for testing, will follow.
--- NOTE | 2022-01-30 11:15 | PM.DS ---
DS: Admitting Diagnosis Discharge Date 01/31/22 1115 Admitting Diagnosis Acute CVA DS: Discharge Diagnosis Discharge Diagnosis (1) Acute CVA (cerebrovascular accident): Code(s): I63.9 - Cerebral infarction, unspecified Status: Acute Assessment and Plan: Last know normal was 1829 yesterday MRI shows acute cerebellar infarct Head CT shows no acute abnormality Carotid <50% stenosis bilaterally Echo EF of 65-70% with a grade 1 diastolic dysfunction without PFO Neurology consult Aspirin, warfarin, and atorvastatin started PT/OT NIH today is 0 (2) Syncope and collapse: Code(s): R55 - Syncope and collapse Status: Acute Assessment and Plan: Syncopal episode noted at the dog [employer] cession Last known normal 0 on 01/30/22 Continuous telemetry Echocardiogram EF of 65-70% with a grade 1 diastolic dysfunction without PFO MRI of the brain shows new acute infarct of the cerebellum Carotid doppler <50% stenosis bilaterally Continue to monitor (3) Hypertension: Code(s): I10 - Essential (primary) hypertension Status: Acute Assessment and Plan: BP 136/77 Started on lisinopril 10mg PO daily Follow-up in outpatient setting Continue to monitor (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: Code(s): Z79.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 Status: Chronic Assessment and Plan: INR is therapeutic Continue Warfarin (5) Pulmonary embolus: Code(s): I26.99 - Other pulmonary embolism without acute cor pulmonale Status: Acute Assessment and Plan: Remote history of pulmonary embolus Complaints of calf pain Venous doppler ordered (6) 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 glucose): Code(s): R73.01 - Impaired fasting glucose Status: Acute Assessment and Plan: Follow-up in outpatient setting (7) Knee effusion, left: Code(s): M25.462 - Effusion, left knee Status: Acute Assessment and Plan: Talked with ortho who looked at the xray and stated patient can follow up out patient DS: Summary Hospital Course Hospital Course: Patient is 71-year-old male who has a past medical history of DVT and PE who presented to the ED with complaints of syncope and collapse. 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 Upon arrival to the ED CT of the head was done and showed no acute abnormality. MRI of the brain showed an acute acute cerebellar CVA. Echo was performed and had is an EF of 65-70% with grade 1 diastolic dysfunction. 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 Patient has no complaints of chest pain, shortness of breath, nausea, vomiting, diarrhea, constipation, weakness or fatigue. Patient complained of left calf pain pain venous Dopplers were performed and did show that the patient does have a DVT in the left leg. Patient is currently anticoagulated on Coumadin and would like to switch to Xarelto for further anticoagulation due to the ease of living a better lifestyle. Patient is currently stable for discharge. Neurology has seen the patient and has okayed the patient to be discharged on the aspirin and warfarin. Patient will need to follow up with Neurology in 6-8 weeks. Case reviewed with Dr. Cain, who agrees with DC. She stated that he will need anticoagulation. She stated that he will also need to follow up with neurology outpatient. [facility]rology talked to Dr. Zavaleta who suggested strong outpatient follow up with reimaging in 3 months. Will have him follow up with Dr. Thornton in 4-[address] Thornton, explained to the patient that they can not fix the occlusion and to stick with his medications strickly to ensure that he remains anticoagulated. Status at Discharge Functional status at
--- NOTE | 2022-01-30 11:15 | P.DS_ITS ---
DS: Admitting Diagnosis Discharge Date 01/31/22 1115 Admitting Diagnosis Acute CVA DS: Discharge Diagnosis Discharge Diagnosis (1) Acute CVA (cerebrovascular accident): Code(s): I63.9 - Cerebral infarction, unspecified Status: Acute Assessment and Plan: * Last know normal was 1830 yesterday * MRI shows acute cerebellar infarct * Head CT shows no acute abnormality * Carotid <50% stenosis bilaterally * Echo EF of 65-70% with a grade 1 diastolic dysfunction without PFO * Neurology consult * Aspirin, warfarin, and atorvastatin started * PT/OT * NIH today is 0 (2) Syncope and collapse: Code(s): R55 - Syncope and collapse Status: Acute Assessment and Plan: * 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 * Last known normal 1830 on 01/30/22 * Continuous telemetry * Echocardiogram EF of 65-70% with a grade 1 diastolic dysfunction without PFO * MRI of the brain shows new acute infarct of the cerebellum * Carotid doppler <50% stenosis bilaterally * Continue to monitor (3) Hypertension: Code(s): I10 - Essential (primary) hypertension Status: Acute Assessment and Plan: * BP 136/77 * Started on lisinopril 10mg PO daily * Follow-up in outpatient setting * Continue to monitor (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: 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 Status: Chronic Assessment and Plan: * INR is therapeutic * Continue Warfarin (5) Pulmonary embolus: Code(s): I26.99 - Other pulmonary embolism without acute cor pulmonale Status: Acute Assessment and Plan: * Remote history of pulmonary embolus * Complaints of calf pain * Venous doppler ordered (6) 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 glucose): Code(s): R73.01 - Impaired fasting glucose Status: Acute Assessment and Plan: * Follow-up in outpatient setting (7) Knee effusion, left: Code(s): M25.462 - Effusion, left knee Status: Acute Assessment and Plan: * Talked with ortho who looked at the xray and stated patient can follow up out patient DS: Summary Hospital Course Hospital Course: Patient is 71-year-old male who has a past medical history of DVT and PE who presented to the ED with complaints of syncope and collapse. 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 Upon arrival to the ED CT of the head was done and showed no acute abnormality. MRI of the brain showed an acute acute cerebellar CVA. Echo was performed and had is an EF of 65-70% with grade 1 diastolic dysfunction. 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 Patient has no complaints of chest pain, shortness of breath, nausea, vomiting, diarrhea, constipation, weakness or fatigue. Patient complained of left calf pain pain venous Dopplers were performed and did show that the patient does have a DVT in the left leg. Patient is currently anticoagulated on Coumadin and would like to switch to Xarelto for further anticoagulation due to the ease of living a better lifestyle. Patient is currently stable for discharge. Neurology has seen the patient and has okayed the patient to be discharged on the aspirin and warfarin. Patient will need to follow up with Neurology in 6-8 weeks. Case reviewed with Dr. Cain, who agrees with DC. Elizabeth mason
[2022-01-30] MEDS: CLOPIDOGREL BISULFATE 75 MG TABLET PO (11:16)
[2022-01-30] MEDS: ASPIRIN 81 MG ENTERIC TABLET PO (11:16)
[2022-01-30] MEDS: ATORVASTATIN 40 MG TABLET PO (11:16)
[2022-01-30] MEDS: WARFARIN (*PBKC) 2 MG TABLET PO (18:28)
[2022-01-31] VITALS (7 sets, daily range): BP systolic 128–136; BP diastolic 77–78; PULSE 55–76; RESP 21; TEMP 36.6; O2SAT 95–100
--- NOTE | 2022-01-31 | ECHO_ITS ---
Patient Info Name: Rocky Piasno Age: 71 years : 1950 Gender: Male Ht: 70 in Wt: 219 lbs BSA: 2.24 m2 HR: 65 bpm BP: 136 / 77 mmHg Technical Quality: Good Exam Date: 01/31/2022 9:18 AM Exam Location: [facility] Pulmonary Patient Status: Inpatient Admit Date: 01/29/2022 Staff Ordering Physician: Shimon Figueroa Mechanical Service Technician: Ivanna Elam RDCS Attending Provider: Fatoumata Frost MD Referring Physician: Henry ATKINS; Exam Type: CA echo limited w bubble study Study Info Indications - BUBBLE STUDY Limited two-dimensional transthoracic echocardiogram is performed with agitated saline. Summary 1. Limited echocardiogram to assess atrial septum. 2. Agitated saline injection with and without valsalva maneuver opacified right side cardiac chambers without shunt to left side cardiac chambers. 3. Intact interatrial septum visualized by 2D, color flow and agitated saline imaging. Atrial Septum Agitated saline injection with and without valsalva maneuver opacified right side cardiac chambers without shunt to left side cardiac chambers. Limited echocardiogram to assess atrial septum. Intact interatrial septum visualized by 2D, color flow and agitated saline imaging. Report Signatures
[2022-01-31 06:06] LABS: INR 2.4; Prothrombin Time 25.1 Seconds (11.1-14.7)
[2022-01-31] MEDS: ASPIRIN 81 MG ENTERIC TABLET PO (09:32)
[2022-01-31] MEDS: lisinopriL 10 MG TABLET PO (09:32)
[2022-01-31] MEDS: ATORVASTATIN 40 MG TABLET PO (09:32)
--- NOTE | 2022-01-31 12:31 | WPDNEURCNPN ---
Assessment and Plan Additional Plan 1 history of venous thrombosis for which patient has been on anticoagulation therapy and the Doppler study here also documented as mentioned above 2 posterior circulation stroke in spite of taking the anticoagulation therapy obviously patient needs to be continued on the medication as such. 3 limited echocardiogram to assess the atrial septum with agitated saline injection with and without Valsalva maneuver did not document the shunt to the left side cardiac chamber. Treatment will be continued as such that is anticoagulation therapy Consult date: 01/31/22 HPI: Rocky Pisano is a 71 year old maleAdmitted to the hospital through the emergency room where he was brought after having had a syncopal episode preceded by lightheadedness and dizziness and with resultant fall striking the back of the head and possibly unconscious for about 1 minutes patient has been taking anticoagulation therapy that is Coumadin for the previous history of PE or DVT the fall resulted in a small abrasion to the anterior scalp and skin tear to the left lateral elbow is mention he was taking Coumadin 2 mg 4 times a week , he is not a smoker not a drinker, initial evaluation documented normal vital signs except the blood pressure 188/99 which came down to 143/76, routine labs was normal with negative CT scan of the head normal cervical spine CT scan with 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, subsequent evaluation included the echocardiogram which documented moderately increased left ventricular wall thickness grade 1 diastolic dysfunction CTA documented acute left cerebellar infarct with no evidence of hydrocephalus or bleed, ultrasound of the lower extremities bilateral venous Doppler documented left peroneal trunk partial thrombosis and brain MRI confirmed the acute left cerebellar infarct Review of Systems Review of Systems: All systems reviewed & are unremarkable except as noted in HPI and below PMFSH Past Medical History Medical History HLD (hyperlipidemia) 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 glucose) 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 Personal history of pulmonary embolism Family History Family History Mother Stomach cancer Acute myocardial infarction Congestive heart failure Hypertension Sibling Acute myocardial infarction Diabetes mellitus Leukemia Dementia Kidney disease Social History Social History Smoking status: Former smoker Second hand tobacco smoke exposure: No Alcohol intake: never Substance use: never Substance use type: does not use Gender identity (if verbalized by the patient): Male Sexual Orientation (if Verbalized by the Patient): Straight or Heterosexual Spiritual care concerns: No Meds Home Medications and Allergies Home Medications Medication Instructions Recorded Confirmed Type warfarin 2 mg tablet See Rx Instructions .ROUTE 10/29/21 01/30/22 Rx .COMPLEX #90 tablet warfarin 2 mg PO 4XW 01/29/22 01/30/22 History Caltrate with Vitamin D3 1 pill PO DAILY 01/30/22 01/30/22 History Allergies Allergy/AdvReac Type Severity Reaction Status Date / Time Penicillins Allergy Unknown Unknown Verified 04/03/21 16:32 Vital Signs Vital Signs - 24 hr 01/30/22 14:00 01/30/22 16:00 01/30/22 20:00 Temperature 36.6 C Pulse Rate 69 71 70 Respiratory Rate 18 18 Blood Pressure 137/85 Pulse Oximetry 96 96 01/30/22 22:00 01/31/22 00:00 01/31/22 04:00 Temperature 36.5 C Pulse Rate 65 62 55 L Respiratory Rate 18 Blood Pressure 145/83 H Pulse Oximetry 95 01/31/22 06:00 01/31/22 08:00 01/31/22 12:00 Temperature 36.6 C Pulse Rate 58 L 61 76 Respiratory Rate 21 H Blood Pressure 136/77 Pulse Oximetry 100 Exam Narrative: revealed him to be awake alert cooperative in no obvious acute distress, head n
== END 2022-01-31 16:03 | disposition home or self-care (01) ==
LOC: ANHED 20:14 → ANH2MED 01-30 01:17
PROVIDERS: Admitting Provider Internal Medicine; Emergency Provider Emergency Medicine; PCP Family Medicine; Visit Provider Nurse Practitioner
DX: I63.9 Cerebral infarction, unspecified (principal); I65.02 Occlusion and stenosis of left vertebral artery; I65.23 Occlusion and stenosis of bilateral carotid arteries; I82.452 Acute embolism and thrombosis of left peroneal vein; I10 Essential (primary) hypertension; E78.5 Hyperlipidemia, unspecified; E07.9 Disorder of thyroid, unspecified; M25.462 Effusion, left knee; R73.01 Impaired fasting glucose; S00.01XA Abrasion of scalp, initial encounter; S51.012A Laceration without foreign body of left elbow, initial encounter; Z20.822 Contact with and (suspected) exposure to COVID-19; Z79.01 Long term (current) use of anticoagulants; Z86.711 Personal history of pulmonary embolism
CPT/HCPCS: 36415; 70450; 70496; 70498; 70551; 72125; 73562; 80053; 80061; 81001; 83605; 83735; 84443; 84484; 85025; 85610; 93005; 93306; 93308; 93880; 93970; 96361; 96374; 96375; 97161; 97165; 99285; A9270; C9803; G0378; J1200; J2405; J2765; J7030; Q9967; U0003; U0005

== ENCOUNTER 2022-02-20 09:58 | Outpatient (RCR) | payer MEDICARE, OTHER, SELFPAY ==
--- NOTE | 2022-02-20 11:01 | PTOPEVAL ---
Thank you for referring Rocky Pisano to [facility].? The patient is scheduled to be seen for therapy? ____x/week for ___ weeks. Please review, sign, date and return this plan of care HARSHA. I agree with and certify that the following plan of care is medically necessary. Referring Physician Date Admitting Provider: Attending Provider: Bulmaro Leung MD Referring Provider: *PT Outpatient Evaluation Start: 02/20/22 10:04 Freq: Status: Active Protocol: Document 02/20/22 10:05 [facility] (Rec: 02/20/22 10:56 [facility] [id number]) Therapy Assessment Status Assessment Status Assessment Status Evaluation Outpatient Past Medical History Neurological History Hx Neurological Disorders No Significant History Cardiovascular History Hx Deep Vein Thrombosis Yes Respiratory History Hx Pulmonary Embolism Yes Gastrointestinal History Hx Gastrointestinal Disorders No Significant History Genitourinary History Hx Genitourinary Disorders No Significant History Musculoskeletal History Hx Back Injury Yes Hematological History Hx Hematological Disorders No Significant History Endocrine History Hx Other Endocrine Disorders Yes: NODLULES ON THYROID HEENT History Hx HEENT Disorders No Significant History Integumentary History Hx Skin Disorders No Significant History Reproductive History Hx Reproductive Disorders No Significant History Psychosocial History Hx Psychiatric Disorders No Significant History Pain History History of Any Previous or Ongoing No Significant History Instance of Pain Anesthesia History Hx Anesthesia Reactions No Significant History Other History Hx Cancer Yes: SKIN CANCER TO LIP, BACK Evaluation Information Problem Diagnosis CVA, gait abnormality, L LE pain Onset 01/29/22 Subjective Information patient reports he is coming Query Text:As Reported By Patient/ to therapy after having a Family stroke on 01/29/22 and also due to having pain in the L LE . he reports he has had a history of a blood clot in the L LE in the past. he reports he takes warfin for his clotting history (since 2011). he reports his INR is checked every other week (2.7 on 09/12). he reports since the stroke he is having balance issues. he reports he had a cerebellar stroke. he reports his L LE will get stiff
--- NOTE | 2022-03-22 14:24 | PTOPEVAL ---
Thank you for referring Rocky Pisano to [facility].? The patient is scheduled to be seen for therapy? ____x/week for ___ weeks. Please review, sign, date and return this plan of care HARSHA. I agree with and certify that the following plan of care is medically necessary. Referring Physician Date Admitting Provider: Attending Provider: Bulmaro Leung MD Referring Provider: *PT Outpatient Evaluation Start: 02/20/22 10:04 Freq: Status: Active Protocol: Document 03/22/22 11:00 [place] (Rec: 03/22/22 14:21 [email or web address] [id number]) Therapy Assessment Status Assessment Status Assessment Status Discharge Outpatient Past Medical History Neurological History Hx Neurological Disorders No Significant History Cardiovascular History Hx Deep Vein Thrombosis Yes Respiratory History Hx Pulmonary Embolism Yes Gastrointestinal History Hx Gastrointestinal Disorders No Significant History Genitourinary History Hx Genitourinary Disorders No Significant History Musculoskeletal History Hx Back Injury Yes Hematological History Hx Hematological Disorders No Significant History Endocrine History Hx Other Endocrine Disorders Yes: NODLULES ON THYROID HEENT History Hx HEENT Disorders No Significant History Integumentary History Hx Skin Disorders No Significant History Reproductive History Hx Reproductive Disorders No Significant History Psychosocial History Hx Psychiatric Disorders No Significant History Pain History History of Any Previous or Ongoing No Significant History Instance of Pain Anesthesia History Hx Anesthesia Reactions No Significant History Other History Hx Cancer Yes: SKIN CANCER TO LIP, BACK Evaluation Information Problem Diagnosis CVA, gait abnormality, L LE pain Onset 01/29/22 Subjective Information patient reports he feels Query Text:As Reported By Patient/ great this date. he reports Family he has improved greatly with therapy. he reports no falls. he reports is ready to DC skilled PT this date and will continue with his HEP at home. Pain Assessment Timing of Pain Assessment Timing of Pain Assessment Assessment Self Report Self Report Pain Level 0 Pain Score Pain Score 0: Self Report Lower Extremity Muscle Strength Testing General Lower Extremity Strength Gross Lower Extremity Strength 5/5 bilateral hip strength sitting flex and abd 5/5 bilateral knee strength flex and ext 5/5 bilateral ankle
== END 2022-03-22 15:18 | disposition home or self-care (01) ==
LOC: CHSPT 09:58
PROVIDERS: Visit Provider Family Medicine
DX: R26.89 Other abnormalities of gait and mobility (principal); I69.30 Unspecified sequelae of cerebral infarction
CPT/HCPCS: 97110; 97112; 97161; 97530

== ENCOUNTER 2022-04-03 12:12 | Outpatient (CLI) | payer MEDICARE, OTHER, SELFPAY ==
[2022-04-03 12:35] LABS: Basophils Absolute Auto 0.1 K/mm3 (0.0-0.1); Basophils Percent Auto 0.7 % (0.2-1.2); Eosinophils Absolute Auto 0.3 K/mm3 (0-0.3); Eosinophils Percent Auto 3.5 % (0-4.4); Hematocrit 43.4 % (42.0-52.0); Hemoglobin 14.5 g/dL (14.0-18.0); Immature Granulocyte Absolute 0.02 K/mm3 (0.00-0.031); Immature Granulocyte Percent A 0.3 % (0-0.5); Lymphocytes Absolute Auto 1.98 K/mm3 (0.9-3.2); Lymphocytes Percent Auto 27.8 % (18.3-44.2); Mean Corpuscular HGB Conc 33.4 g/dl (32-36); Mean Corpuscular Volume 95.8 fl (80-100); Mean Platelet Volume 10.3 fl (7.4-10.4); Monocytes Absolute Auto 0.7 K/mm3 (0.1-0.6); Monocytes Percent Auto 9.7 % (2.6-8.5); Neutrophils Absolute Auto 4.1 K/mm3 (1.3-6.7); Platelet Count Result 305 k/mm3 (150-375); Red Blood Count 4.53 M/mm3 (4.6-6.20); Red Cell Distribution Width 13.5 % (11.5-14.5); White Blood Count 7.1 K/mm3 (4.5-10.0)
[2022-04-03 12:46] LABS: Alanine Aminotransferase 34 U/L (6-50); Albumin Level 4.1 g/dL (3.5-5.1); Alkaline Phosphatase 73 U/L (38-126); Anion Gap 7 mmol/L (8-16); Aspartate Amino Transferase 34 U/L (17-59); Bilirubin,Total 1.2 mg/dL (0.2-1.3); Blood Urea Nitrogen 14 mg/dL (9-20); Calcium 8.8 mg/dL (8.4-10.2); Carbon Dioxide 24 mmol/L (22-30); Chloride 109 mmol/L (98-107); Cholesterol 122 mg/dL (0-200); Estimated Glomerular Filt Rate 59; Glucose 113 mg/dL (65-110); HDL Direct 44 mg/dL; Potassium 4.3 mmol/L (3.4-5.0); Sodium 140 mmol/L (137-145); Triglycerides 81 mg/dL (<150)
[2022-04-03 12:58] LABS: LDL Cholesterol Direct 37 mg/dL
[2022-04-03 13:09] LABS: Appearance Urine Clear (Clear); Bilirubin Urine Negative (Negative); Blood Urine Negative (Negative); Color Urine Yellow (Yellow); Glucose Urine UA Negative (Negative); Ketones Urine Negative (Negative); Leukocyte Esterase Ur Negative LEU/UL (NEGATIVE); Nitrate Urine Negative (Negative); Protein Urine Negative (Negative); Specific Grav Ur 1.025 (1.001-1.035); Urobilinogen Urine 0.2 mg/dL (<2.0); pH Urine 5.5 (5.0-9.0)
[2022-04-03 13:18] LABS: Add Urine Microscopic? NO
[2022-04-03 13:18] LABS: Hemoglobin A1C 5.9 % (<5.7)
== END 2022-04-03 12:13 | disposition home or self-care (01) ==
PROVIDERS: PCP Family Medicine; Visit Provider Physician Assistant
DX: E04.1 Nontoxic single thyroid nodule (principal); I63.9 Cerebral infarction, unspecified; R26.89 Other abnormalities of gait and mobility; I69.30 Unspecified sequelae of cerebral infarction; I10 Essential (primary) hypertension; R73.01 Impaired fasting glucose; D68.59 Other primary thrombophilia; Z00.00 Encounter for general adult medical examination without abnormal findings; Z79.01 Long term (current) use of anticoagulants
CPT/HCPCS: 36415; 80053; 80061; 81003; 83036; 84443; 85025; 85610

== ENCOUNTER 2022-05-16 11:27 | Outpatient (RCR) | payer MEDICARE, OTHER, SELFPAY ==
[2022-02-22 13:11] LABS: INR 1.9; Prothrombin Time 21.2 Seconds (11.1-14.7)
[2022-03-06 12:25] LABS: INR 2.1; Prothrombin Time 22.9 Seconds (11.1-14.7)
[2022-04-03 12:46] LABS: INR 2.4; Prothrombin Time 25.1 Seconds (11.1-14.7)
[2022-05-16 12:19] LABS: INR 2.4; Prothrombin Time 25.2 Seconds (11.1-14.7)
== END 2022-05-23 23:59 | disposition home or self-care (01) ==
LOC: ANHLAB 11:27
PROVIDERS: PCP Family Medicine; Visit Provider Family Medicine
DX: D68.59 Other primary thrombophilia (principal)
CPT/HCPCS: 36415; 85610

== ENCOUNTER 2022-06-19 10:05 | Outpatient (CLI) | payer MEDICARE, OTHER, SELFPAY ==
[2022-06-19 11:01] LABS: Alanine Aminotransferase 30 U/L (6-50); Albumin Level 4.1 g/dL (3.5-5.1); Alkaline Phosphatase 68 U/L (38-126); Anion Gap 12 mmol/L (8-16); Aspartate Amino Transferase 40 U/L (17-59); Bilirubin,Total 0.7 mg/dL (0.2-1.3); Blood Urea Nitrogen 13 mg/dL (9-20); Calcium 8.7 mg/dL (8.4-10.2); Carbon Dioxide 26 mmol/L (22-30); Chloride 105 mmol/L (98-107); Cholesterol 123 mg/dL (0-200); Estimated Glomerular Filt Rate 59; Glucose 116 mg/dL (65-110); HDL Direct 50 mg/dL; Sodium 143 mmol/L (137-145); Triglycerides 58 mg/dL (<150)
[2022-06-19 11:11] LABS: LDL Cholesterol Direct 47 mg/dL
== END 2022-06-19 10:06 | disposition home or self-care (01) ==
PROVIDERS: PCP Family Medicine; Visit Provider Family Medicine
DX: E78.5 Hyperlipidemia, unspecified (principal); R73.01 Impaired fasting glucose; I63.9 Cerebral infarction, unspecified; I10 Essential (primary) hypertension
CPT/HCPCS: 36415; 80053; 80061; 83036

== ENCOUNTER 2022-09-27 10:30 | Outpatient (RCR) | payer MEDICARE, OTHER, SELFPAY ==
[2022-07-17 13:03] LABS: Prothrombin Time 21.8 Seconds (11.1-14.7)
[2022-08-07 13:39] LABS: INR 2.5; Prothrombin Time 26.5 Seconds (11.1-14.7)
[2022-09-27 11:28] LABS: INR 2.3; Prothrombin Time 24.9 Seconds (11.1-14.7)
== END 2022-10-15 23:59 | disposition home or self-care (01) ==
LOC: ANHLAB 10:30
PROVIDERS: PCP Family Medicine; Visit Provider Family Medicine
DX: D68.59 Other primary thrombophilia (principal)
CPT/HCPCS: 36415; 85610

== ENCOUNTER 2022-10-25 10:47 | Outpatient (CLI) | payer MEDICARE, OTHER, SELFPAY ==
--- NOTE | ~2022-10-25 | XR_ITS ---
EXAMINATION: XR knee LT 2V DATE: 10/25/2022 11:20 INDICATION: Left knee pain TECHNIQUE: Two views of the left knee were obtained. COMPARISON: 01/31/2022 FINDINGS: Alignment is normal. No fracture or osteochondral lesion. There is unchanged moderate osteo arthritis of the medial patellofemoral compartments and mild osteoarthritis of the lateral compartmen t. There is a small knee joint effusion. Soft tissues are unremarkable. IMPRESSION: 1. Moderate left knee osteoarthritis without acute findings or significant change. Reviewed, dictated and finalized at location B. RETORT OPERATOR IMPRESSION: 1. Moderate left knee osteoarthritis without acute findings or significant webb ge.
== END 2022-10-25 10:48 | disposition home or self-care (01) ==
PROVIDERS: PCP Family Medicine; Visit Provider Family Medicine
DX: M25.562 Pain in left knee (principal); M17.12 Unilateral primary osteoarthritis, left knee
CPT/HCPCS: 73560

== ENCOUNTER 2022-10-30 11:44 | Outpatient (CLI) | payer MEDICARE, OTHER, SELFPAY ==
[2022-10-30 12:58] LABS: INR 2.1; Prothrombin Time 23.1 Seconds (11.1-14.7)
[2022-10-30 13:02] LABS: Alanine Aminotransferase 28 U/L (6-50); Albumin Level 3.6 g/dL (3.5-5.1); Alkaline Phosphatase 68 U/L (38-126); Anion Gap 2 mmol/L (8-16); Aspartate Amino Transferase 30 U/L (17-59); Bilirubin,Total 0.8 mg/dL (0.2-1.3); Blood Urea Nitrogen 14 mg/dL (9-20); Calcium 8.5 mg/dL (8.4-10.2); Carbon Dioxide 29 mmol/L (22-30); Chloride 109 mmol/L (98-107); Estimated Glomerular Filt Rate 59; Glucose 105 mg/dL (65-110); Potassium 4.2 mmol/L (3.4-5.0); Sodium 140 mmol/L (137-145)
== END 2022-10-30 11:45 | disposition home or self-care (01) ==
PROVIDERS: PCP Family Medicine; Visit Provider Family Medicine
DX: I10 Essential (primary) hypertension (principal); R73.01 Impaired fasting glucose
CPT/HCPCS: 36415; 80053; 83036; 85610

== ENCOUNTER 2023-01-16 12:06 | Outpatient (RCR) | payer MEDICARE, OTHER, SELFPAY ==
[2022-12-04 12:48] LABS: INR 1.9; Prothrombin Time 21.4 Seconds (11.1-14.7)
[2022-12-13 12:16] LABS: INR 2.4; Prothrombin Time 25.3 Seconds (11.1-14.7)
[2023-01-16 12:49] LABS: Prothrombin Time 23.9 Seconds (11.1-14.7)
== END 2023-01-28 23:59 | disposition home or self-care (01) ==
LOC: ANHLAB 12:06
PROVIDERS: PCP Family Medicine; Visit Provider Family Medicine
DX: D68.59 Other primary thrombophilia (principal)
CPT/HCPCS: 36415; 85610

== ENCOUNTER 2023-01-16 12:07 | Outpatient (CLI) | payer MEDICARE, OTHER, SELFPAY ==
[2023-01-20 09:47] LABS: Protein S Antigen, Free 32 % normal (57-171)
== END 2023-01-16 12:08 | disposition home or self-care (01) ==
PROVIDERS: PCP Family Medicine; Visit Provider Student in an Organized Health Care Education/Training Program
DX: D68.59 Other primary thrombophilia (principal)
CPT/HCPCS: 36415; 85306; 85610

== ENCOUNTER 2023-05-14 13:33 | Outpatient (RCR) | payer MEDICARE, OTHER, SELFPAY ==
[2023-02-21 13:07] LABS: Prothrombin Time 24.5 Seconds (11.1-14.7)
[2023-04-10 12:47] LABS: INR 2.7; Prothrombin Time 30.6 Seconds (11.1-14.7)
[2023-05-14 15:21] LABS: INR 2.2; Prothrombin Time 25.7 Seconds (11.1-14.7)
== END 2023-05-22 23:59 | disposition home or self-care (01) ==
LOC: ANHLAB 13:33
PROVIDERS: PCP Family Medicine; Visit Provider Physician Assistant
DX: Z51.81 Encounter for therapeutic drug level monitoring (principal); I26.99 Other pulmonary embolism without acute cor pulmonale; Z79.01 Long term (current) use of anticoagulants
CPT/HCPCS: 36415; 85610

== ENCOUNTER 2023-05-14 13:35 | Outpatient (CLI) | payer MEDICARE, OTHER, SELFPAY ==
[2023-05-14 14:57] LABS: Hemoglobin 15.2 g/dL (14.0-18.0); Mean Corpuscular HGB Conc 33.8 g/dl (32-36); Mean Corpuscular Hemoglobin 32.2 pg (26-34); Mean Corpuscular Volume 95.3 fl (80-100); Platelet Count Result 318 k/mm3 (150-375); Red Blood Count 4.72 M/mm3 (4.6-6.20); Red Cell Distribution Width 13.2 % (11.5-14.5); White Blood Count 7.9 K/mm3 (4.5-10.0)
[2023-05-14 15:19] LABS: Appearance Urine Clear (Clear); Bilirubin Urine Negative (Negative); Blood Urine Negative (Negative); Color Urine Yellow (Yellow); Glucose Urine UA Negative (Negative); Ketones Urine Negative (Negative); Leukocyte Esterase Ur Negative LEU/UL (NEGATIVE); Nitrate Urine Negative (Negative); Protein Urine Negative (Negative); Specific Grav Ur 1.006 (1.001-1.035); Urobilinogen Urine 0.2 mg/dL (<2.0); pH Urine 6.5 (5.0-9.0)
[2023-05-14 15:33] LABS: Add Urine Microscopic? NO
[2023-05-14 15:42] LABS: Alanine Aminotransferase 35 U/L (6-50); Albumin Level 4.3 g/dL (3.5-5.1); Alkaline Phosphatase 59 U/L (38-126); Anion Gap 8 mmol/L (8-16); Aspartate Amino Transferase 35 U/L (17-59); Bilirubin,Total 1.2 mg/dL (0.2-1.3); Blood Urea Nitrogen 17 mg/dL (9-20); Calcium 9.1 mg/dL (8.4-10.2); Carbon Dioxide 23 mmol/L (22-30); Chloride 107 mmol/L (98-107); Cholesterol 141 mg/dL (0-200); Estimated Glomerular Filt Rate > 60; Glucose 108 mg/dL (65-110); HDL Direct 47 mg/dL; Potassium 4.1 mmol/L (3.4-5.0); Sodium 138 mmol/L (137-145); Triglycerides 82 mg/dL (<150)
[2023-05-14 16:11] LABS: Prostate Specific Antigen 1.5 ng/mL (< OR = 4.0)
[2023-05-14 16:15] LABS: LDL Cholesterol Direct 64 mg/dL
== END 2023-05-14 13:36 | disposition home or self-care (01) ==
PROVIDERS: PCP Family Medicine; Visit Provider Family Medicine
DX: R73.01 Impaired fasting glucose (principal); E78.5 Hyperlipidemia, unspecified; I10 Essential (primary) hypertension; R35.1 Nocturia; E04.1 Nontoxic single thyroid nodule; I63.9 Cerebral infarction, unspecified; Z79.01 Long term (current) use of anticoagulants
CPT/HCPCS: 36415; 80053; 80061; 81003; 83036; 84153; 84443; 85027; 85610

== ENCOUNTER 2023-08-27 13:38 | Outpatient (RCR) | payer MEDICARE, OTHER, SELFPAY ==
[2023-06-19 13:25] LABS: INR 2.9; Prothrombin Time 32.1 Seconds (11.1-14.7)
[2023-07-24 14:15] LABS: INR 2.8; Prothrombin Time 31.7 Seconds (11.1-14.7)
[2023-08-27 14:08] LABS: INR 2.9; Prothrombin Time 32.7 Seconds (11.1-14.7)
== END 2023-09-17 23:59 | disposition home or self-care (01) ==
LOC: ANHLAB 13:38
PROVIDERS: PCP Family Medicine; Visit Provider Physician Assistant
DX: Z51.81 Encounter for therapeutic drug level monitoring (principal); Z79.01 Long term (current) use of anticoagulants
CPT/HCPCS: 36415; 85610

== ENCOUNTER 2023-11-12 13:48 | Outpatient (CLI) | payer OTHER, SELFPAY ==
[2023-11-12 14:45] LABS: Alanine Aminotransferase 32 U/L (6-50); Albumin Level 3.8 g/dL (3.5-5.1); Alkaline Phosphatase 63 U/L (38-126); Anion Gap 6 mmol/L (8-16); Aspartate Amino Transferase 37 U/L (17-59); Bilirubin,Total 0.8 mg/dL (0.2-1.3); Blood Urea Nitrogen 18 mg/dL (9-20); Calcium 8.9 mg/dL (8.4-10.2); Carbon Dioxide 24 mmol/L (22-30); Chloride 110 mmol/L (98-107); Estimated Glomerular Filt Rate > 60; Glucose 113 mg/dL (65-110); Potassium 4.3 mmol/L (3.4-5.0); Sodium 140 mmol/L (137-145)
== END 2023-11-12 13:49 | disposition home or self-care (01) ==
PROVIDERS: PCP Family Medicine; Visit Provider Family Medicine
DX: I10 Essential (primary) hypertension (principal)
CPT/HCPCS: 36415; 80053; 85610

== ENCOUNTER 2023-11-20 12:43 | Outpatient (RCR) | payer OTHER, SELFPAY ==
[2023-10-03 14:01] LABS: INR 2.4; Prothrombin Time 28.3 Seconds (11.1-14.7)
[2023-11-12 14:46] LABS: INR 3.1; Prothrombin Time 34.5 Seconds (11.1-14.7)
[2023-11-20 13:35] LABS: INR 2.7; Prothrombin Time 30.2 Seconds (11.1-14.7)
== END 2024-01-01 23:59 | disposition home or self-care (01) ==
LOC: ANHLAB 12:43
PROVIDERS: PCP Family Medicine; Visit Provider Family Medicine
DX: Z51.81 Encounter for therapeutic drug level monitoring (principal); Z86.711 Personal history of pulmonary embolism; Z79.01 Long term (current) use of anticoagulants
CPT/HCPCS: 36415; 85610

== ENCOUNTER 2024-04-02 12:52 | Outpatient (RCR) | payer OTHER, SELFPAY ==
[2024-01-20 14:40] LABS: INR 2.1; Prothrombin Time 25.1 Seconds (11.1-14.7)
[2024-02-19 14:11] LABS: INR 2.3; Prothrombin Time 27.3 Seconds (11.1-14.7)
[2024-04-02 13:35] LABS: INR 2.3; Prothrombin Time 25.8 Seconds (11.1-14.7)
== END 2024-04-19 23:59 | disposition home or self-care (01) ==
LOC: ANHLAB 12:52
PROVIDERS: PCP Family Medicine; Visit Provider Physician Assistant
DX: Z51.81 Encounter for therapeutic drug level monitoring (principal); Z86.711 Personal history of pulmonary embolism; Z79.01 Long term (current) use of anticoagulants
CPT/HCPCS: 36415; 85610

== ENCOUNTER 2024-04-02 12:53 | Outpatient (CLI) | payer OTHER, SELFPAY ==
[2024-04-02 13:36] LABS: Hemoglobin A1C 6.2 % (<5.7)
[2024-04-02 13:44] LABS: LDL Cholesterol Direct 57 mg/dL
== END 2024-04-02 12:54 | disposition home or self-care (01) ==
PROVIDERS: PCP Family Medicine; Visit Provider Student in an Organized Health Care Education/Training Program
DX: R73.01 Impaired fasting glucose (principal); I69.30 Unspecified sequelae of cerebral infarction
CPT/HCPCS: 36415; 83036; 83721; 85610

== ENCOUNTER 2024-05-06 10:22 | Outpatient (CLI) | payer OTHER, SELFPAY ==
[2024-05-06 11:00] LABS: Hematocrit 42.4 % (42.0-52.0); Hemoglobin 14.6 g/dL (14.0-18.0); Mean Corpuscular HGB Conc 34.4 g/dl (32-36); Mean Corpuscular Hemoglobin 33.1 pg (26-34); Mean Corpuscular Volume 96.1 fl (80-100); Platelet Count Result 314 k/mm3 (150-375); Red Blood Count 4.41 M/mm3 (4.6-6.20); Red Cell Distribution Width 13.3 % (11.5-14.5); White Blood Count 7.5 K/mm3 (4.5-10.0)
[2024-05-06 11:03] LABS: Add Urine Microscopic? NO; Appearance Urine Clear (Clear); Bilirubin Urine Negative (Negative); Blood Urine Negative (Negative); Color Urine Yellow (Yellow); Glucose Urine UA Negative (Negative); Ketones Urine Negative (Negative); Leukocyte Esterase Ur Negative LEU/UL (Negative); Nitrate Urine Negative (Negative); Protein Urine Negative (Negative); Specific Grav Ur 1.013 (1.001-1.035); Urobilinogen Urine 0.2 mg/dL (<2.0)
[2024-05-06 11:16] LABS: Alanine Aminotransferase 33 U/L (6-50); Albumin Level 3.9 g/dL (3.5-5.1); Alkaline Phosphatase 68 U/L (38-126); Anion Gap 6 mmol/L (4-12); Aspartate Amino Transferase 40 U/L (17-59); Bilirubin,Total 1.2 mg/dL (0.2-1.3); Blood Urea Nitrogen 18 mg/dL (9-20); Calcium 9.2 mg/dL (8.4-10.2); Carbon Dioxide 26 mmol/L (22-30); Chloride 105 mmol/L (98-107); Cholesterol 124 mg/dL (0-200); Estimated Glomerular Filt Rate 59; Glucose 114 mg/dL (65-110); HDL Direct 47 mg/dL; Potassium 4.1 mmol/L (3.4-5.0); Sodium 137 mmol/L (137-145); Triglycerides 71 mg/dL (<150)
[2024-05-06 11:22] LABS: Hemoglobin A1C 6.3 % (<5.7)
[2024-05-06 11:27] LABS: LDL Cholesterol Direct 54 mg/dL
[2024-05-06 11:47] LABS: Prostate Specific Antigen 1.2 ng/mL (< OR = 4.0)
== END 2024-05-06 10:23 | disposition home or self-care (01) ==
LOC: ANHLAB 10:35
PROVIDERS: PCP Family Medicine; Visit Provider Family Medicine
DX: E78.5 Hyperlipidemia, unspecified (principal); I10 Essential (primary) hypertension; R35.1 Nocturia; R73.01 Impaired fasting glucose; Z00.00 Encounter for general adult medical examination without abnormal findings; Z79.01 Long term (current) use of anticoagulants; E04.1 Nontoxic single thyroid nodule; Z12.5 Encounter for screening for malignant neoplasm of prostate; I69.30 Unspecified sequelae of cerebral infarction
CPT/HCPCS: 36415; 80053; 80061; 81003; 83036; 84153; 84443; 85027; 85610

== ENCOUNTER 2024-05-17 14:34 | Outpatient (CLI) | payer OTHER, SELFPAY ==
--- NOTE | ~2024-05-17 | US_ITS ---
EXAMINATION: US thyroid DATE: 05/17/2024 15:04 INDICATION: Nontoxic single thyroid nodule. TECHNIQUE: Multiple ultrasound images of the thyroid were obtained. COMPARISON: Thyroid ultrasound 03/15/2019 FINDINGS: The right thyroid lobe measures 4.1 x 2.8 x 3.3 cm. The left thyroid lobe measures 4.0 x 1.4 x 1.3 c m. In the left thyroid lobe, there is a 7 mm solid, hyperechoic, taller than wide nodule with smooth margin without echogenic foci (TI-RADS TR4). In the right thyroid lobe, there is a 3.7 cm predominan tly solid, hypoechoic, wider than tall nodule with smooth margin without echogenic foci (TR4), stable from 04/09/19 when biopsy was benign. IMPRESSION: 1. Thyroid nodules, likely not clinically significant. No follow-up is needed. Reviewed, dictated and finalized at location A.
== END 2024-05-17 14:35 | disposition home or self-care (01) ==
PROVIDERS: PCP Family Medicine; Visit Provider Family Medicine
DX: E04.1 Nontoxic single thyroid nodule (principal)
CPT/HCPCS: 76536

== ENCOUNTER 2024-07-22 11:34 | Outpatient (RCR) | payer OTHER, SELFPAY ==
[2024-05-06 11:14] LABS: INR 2.9; Prothrombin Time 31.2 Seconds (11.1-14.7)
[2024-06-10 12:50] LABS: INR 2.7
[2024-07-22 12:19] LABS: INR 2.8; Prothrombin Time 29.4 Seconds (11.1-14.7)
== END 2024-08-04 23:59 | disposition home or self-care (01) ==
LOC: ANHLAB 11:34
PROVIDERS: PCP Family Medicine; Visit Provider Physician Assistant
DX: Z51.81 Encounter for therapeutic drug level monitoring (principal); Z79.01 Long term (current) use of anticoagulants; Z86.711 Personal history of pulmonary embolism
CPT/HCPCS: 36415; 85610

== ENCOUNTER 2024-07-22 11:35 | Outpatient (CLI) | payer OTHER, SELFPAY ==
--- NOTE | ~2024-07-22 | XR_ITS ---
XR knee RT 3V Ordering provider: Bulmaro Leung MD History: . M25.561 - Posterior Pain in right knee . Comparison: None. FINDINGS: BONES: No acute fracture or dislocation. Osteopenia of the bones. JOINT SPACES: Severe narrowing of the medial compartment. Marginal osteophytes in the patella. SOFT TISSUES: Normal. IMPRESSION: No acute osseous abnormality right knee. Severe osteoarthritic changes in the knee and patellofemoral joints. Reviewed, dictated and finalized at location A.
== END 2024-07-22 11:36 | disposition home or self-care (01) ==
LOC: ANHIMG 11:36
PROVIDERS: PCP Family Medicine; Visit Provider Family Medicine
DX: M17.11 Unilateral primary osteoarthritis, right knee (principal)
CPT/HCPCS: 73562

== ENCOUNTER 2024-09-23 12:32 | Outpatient (RCR) | payer OTHER, SELFPAY ==
[2024-08-31 11:20] LABS: INR 3.3; Prothrombin Time 33.5 Seconds (11.1-14.7)
[2024-09-23 13:21] LABS: INR 3.2; Prothrombin Time 33.4 Seconds (11.1-14.7)
== END 2024-11-29 23:59 | disposition home or self-care (01) ==
LOC: ANHLAB 12:32
PROVIDERS: PCP Family Medicine; Visit Provider Physician Assistant
DX: Z51.81 Encounter for therapeutic drug level monitoring (principal); Z86.711 Personal history of pulmonary embolism; Z79.01 Long term (current) use of anticoagulants
CPT/HCPCS: 36415; 85610

== ENCOUNTER 2024-10-14 00:37 | Day surgery (SDC) | payer OTHER, SELFPAY ==
[2024-09-30 14:33] VITALS: BMI 29.4
--- NOTE | 2024-10-06 13:40 | PC.NURSE ---
Spoke with _patient_ regarding medication _warfarin_. _Patient_verbalizes understanding that the last dose is to be taken on 10/09/2024 and the Endoscopist will instruct them when to restart after the procedure.
--- NOTE | 2024-10-13 15:38 | P.PNAN_ITS ---
Anes - Initial Pre Proc Eval Procedure: Operation Date: 10/14/24 11:00 Proposed Procedures p Screening Colonoscopy - Ryan Pantoja MD Date/Time: 10/13/24 15:38 Surgeon: Ryan Pantoja MD Pre Op Diagnosis: screening colon/rectum malignant neoplasm Patient Data Age: 74 Gender: M Height: 1.78 m Weight: 93.1 kg Allergies Allergy/AdvReac Type Severity Reaction Status Date / Time Penicillins Allergy Unknown Unknown Verified 10/14/24 09:31 Home Medications ?Medication ?Instructions ?Recorded ?Confirmed ?Type Caltrate with Vitamin D3 1 pill PO DAILY 01/30/22 10/14/24 History aspirin 81 mg tablet,delayed 81 mg PO QAM #30 tabs 01/31/22 10/14/24 Rx release sildenafil 50 mg tablet 50 mg PO DAILY PRN sexual activity 08/27/23 09/30/24 History lisinopril 20 mg tablet 20 mg PO DAILY #90 tabs 11/20/23 10/14/24 Rx atorvastatin 40 mg tablet 40 mg PO DAILY #90 tabs 08/30/24 10/14/24 Rx warfarin 3 mg tablet See Rx Instructions .Route 09/23/24 10/14/24 Rx .COMPLEX #90 tabs Patient hx anesthesia problems: none Family hx anesthesia problems: none Results Review: All pre-operative results and documents have been reviewed as part of the pre-op erative evaluation. 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 Family History Family History Mother Stomach cancer Acute myocardial infarction Congestive heart failure Hypertension Sibling Acute myocardial infarction Diabetes mellitus Leukemia Dementia Kidney disease Social History Social History Social History: Smoking status: Never smoker Second hand tobacco smoke exposure: No Alcohol intake: never Substance use: never Substance use type: does not use Lack of Transportation: No Lack of Food: Never True Current Housing: I Have Housing Concerned About Future Housing: No Difficulty Paying Gas/Electric Bills: No Difficulty Paying for Meds: YES Currently Unemployed: No Education: Trade/Vocational Certificate Difficulty w/ Childcare or Family Care: No Living arrangements: with family Occupation/Education: retired Gender identity (if verbalized by the patient): Male Sexual Orientation (if Verbalized by the Patient): Straight or Heterosexual Spiritual care concerns: No Anes - Eval Final PreProcedure Day of Procedure 10/13/24 15:38 Patient weight: overweight Heart: regular rate and rhythm Lungs: clear to auscultation Airway: Mallampati scale class II Neurological: alert and oriented Last oral intake: >/= 8 hours ASA classification: III Emergent: no Anesthetic plan: proceed Anesthesia type and monitoring: general GIVS and standard monitoring Results Review: All pre-operative results and documents have been reviewed as part of the pre- operative evaluation. Informed Consent: The patient's anesthetic plan and its attendant risks and benefits were discussed with the patient/family/POA. Questions were solicited and answers provided to the satisfaction of the patient/family/POA.
[2024-10-14 09:33] VITALS: BP 132/76; PULSE 79; RESP 20; TEMP 36.2; O2SAT 97; BMI 29.2
[2024-10-14] MEDS: LACTATED RINGERS 1,000 ML 150 ML IV CONT (09:37)
--- NOTE | 2024-10-14 09:56 | P.HP_ITS ---
History of Present Illness History of Present Illness Consent: Risks, benefits, and alternatives have been discussed and questions answered. Patient agrees to proceed with procedure. Chief complaint: screening colon/rectum malignant neoplasm Narrative: Rocky Piasno is a 74 year old male here for screening colonoscopy, last one about 10 years ago Review of Systems Review of Systems: All systems reviewed & are unremarkable except as noted in HPI and below PMFSH Past Medical History Medical History (Updated 10/14/24 @ 10:00 by Ryan Pantoja MD) Colon cancer screening DVT (deep venous thrombosis) History of skin cancer Imbalance History of stroke with current residual effects HLD (hyperlipidemia) 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 glucose) Personal history of pulmonary embolism jail (current) use of anticoagulants Family History Family History Mother Stomach cancer Acute myocardial infarction Congestive heart failure Hypertension Sibling Acute myocardial infarction Diabetes mellitus Leukemia Dementia Kidney disease Social History Social History Social History: Smoking status: Never smoker Second hand tobacco smoke exposure: No Alcohol intake: never Substance use: never Substance use type: does not use Lack of Transportation: No Lack of Food: Never True Current Housing: I Have Housing Concerned About Future Housing: No Difficulty Paying Gas/Electric Bills: No Difficulty Paying for Meds: YES Currently Unemployed: No Education: Trade/Vocational Certificate Difficulty w/ Childcare or Family Care: No Living arrangements: with family Occupation/Education: retired Gender identity (if verbalized by the patient): Male Sexual Orientation (if Verbalized by the Patient): Straight or Heterosexual Spiritual care concerns: No Meds Home Medications and Allergies Home Medications ?Medication ?Instructions ?Recorded ?Confirmed ?Type Caltrate with Vitamin D3 1 pill PO DAILY 01/30/22 10/14/24 History aspirin 81 mg tablet,delayed 81 mg PO QAM #30 tabs 01/31/22 10/14/24 Rx release sildenafil 50 mg tablet 50 mg PO DAILY PRN sexual activity 08/27/23 09/30/24 History lisinopril 20 mg tablet 20 mg PO DAILY #90 tabs 11/20/23 10/14/24 Rx atorvastatin 40 mg tablet 40 mg PO DAILY #90 tabs 12/09/24 01/23/25 Rx warfarin 3 mg tablet See Rx Instructions .Route 09/23/24 10/14/24 Rx .COMPLEX #90 tabs Allergies Allergy/AdvReac Type Severity Reaction Status Date / Time Penicillins Allergy Unknown Unknown Verified 10/14/24 09:31 Vital Signs Vital Signs - 24 hr 10/14/24 09:33 Temperature 97.2 F L Pulse Rate 79 Respiratory Rate 20 Blood Pressure 132/76 Pulse Oximetry 97 Oxygen Delivery Room Air Exam 2 Const: General: comfortable and no acute distress HENMT: Face/Nose/Sinus: Normal nares present Eyes: General: appearance normal, both eyes and all related structures Neck: Neck: no JVD Resp: Auscultation: clear to auscultation bilaterally Cardio: Rate: regular rate Rhythm: regular rhythm GI: Inspection: non-distended GI Palp: Yes Soft to palpation Skin: General skin exam: normal color Neuro: Speech: normal speech Extrem: General: normal to inspection Psych: Mental Status: mental status grossly normal Assessment and Plan Assessment and plan (1) Colon cancer screening: Code(s): Z12.11 - Encounter for screening for malignant neoplasm of colon Status: Acute Assessment and Plan: colonoscopy
[2024-10-14 10:15] VITALS: BP 76/46; PULSE 74; RESP 16; O2SAT 95
[2024-10-14 10:25] VITALS: BP 101/67; PULSE 72; RESP 20; O2SAT 96
[2024-10-14 10:35] VITALS: BP 124/80; PULSE 63; RESP 18; O2SAT 98
== END 2024-10-14 10:43 | disposition home or self-care (01) ==
PROVIDERS: PCP Family Medicine; Visit Provider Internal Medicine Gastroenterology
PROC: 0DJD8ZZ Inspection of Lower Intestinal Tract, Via Natural or Artificial Opening Endoscopic (ICD-10-PCS; CPT 45378; principal; 2024-10-14 11:00)
DX: Z12.11 Encounter for screening for malignant neoplasm of colon (principal); D12.3 Benign neoplasm of transverse colon; K64.8 Other hemorrhoids
CPT/HCPCS: 45385; 88305; J2003; J2704; J7120

== ENCOUNTER 2024-11-01 13:32 | Outpatient (CLI) | payer OTHER, SELFPAY ==
--- OUTSIDE RECORDS SUMMARY | 2024-11-01 13:42 | XMS_ITS | Clinical Summary ---
Author Organization [facility] Stephie Montenegrojohn paul Address [address] [address] Care Team Providers Care Ux Developer Name Role Phone Bulmaro Leung MD Primary Care Provider [phone] Allergies Active Allergy Reactions Criticality Noted Date Comments Penicillin Rash Low 06/26/2023 Medications warfarin (COUMADIN) 3 mg tablet Take 3 mg by mouth daily. Active atorvastatin (LIPITOR) 40 mg tablet Take 40 mg by mouth daily. Active lisinopriL (PRINIVIL) 10 mg tablet Take 10 mg by mouth daily. Active aspirin (ECOTRIN EC) 81 mg Tablet, Delayed Release (E.C.) Take 81 mg by mouth daily. Active Calcium-Cholecal ciferol, D3, (OSCAL) 250 mg-3.125 mcg (125 unit) per tablet Take by mouth daily. Active sildenafiL, pulm.hypertensio n, (REVATIO) 20 mg Tablet Take 20 mg by mouth 3 times daily. Active Active Problems No known active problems Family History Medical History Relation Name Comments Leukemia Brother 2 Cancer Mother Diabetes Mother Heart Disease Sister 3 Relation Name Status Comments Brother 1 Alive Brother 2 Alive Brother 3 Alive Daughter Alive Father Mother Sister 1 Alive Sister 2 Alive Sister 3 Son 1 Alive Son 2 Alive Social History Tobacco Use Types Packs/Day Years Used Date Smoking Tobacco: Never Smokeless Tobacco: Never Tobacco Cessation:Counseling Given: Not Answered Alcohol Use Standard Drinks/Week Comments Never 0 (1 standard drink = 0.6 oz pur e alcohol) Sex and Gender Information Value Date Recorded Sex Assigned at Not on file Legal Sex Male 3:05 PM CDT Gender Identity Not on file Sexual Orientation Not on file Last Filed Vital Signs Vital Sign Reading Time Taken Comments Blood Pressure 131/75 06/26/2023 10:22 AM CDT Pulse 68 06/26/2023 10:22 AM CDT Temperature 36.2 C (97.2 F) 06/26/2023 10:22 AM CDT Respiratory Rate 10 06/26/2023 10:22 AM CDT Oxygen Saturation 97% 06/26/2023 10:22 AM CDT Inhaled Oxygen Concentration - - Weight 97.1 kg (214 lb) 06/26/2023 10:22 AM CDT Height 177.8 cm (5' 10 ) 06/26/2023 10:22 AM CDT Body Mass Index 30.71 06/26/2023 10:22 AM CDT Plan of Treatment Health Maintenance Due Date Last Done Comments DTAP/TDAP/TD VACCINES (1 - Tdap) 1967 COLORECTAL SCREENING 1993 Colorectal Cancer Screening 1993 FIT-DNA Q 3 years 1993 FIT/FOBT Q 1 year 1993 Flex Sig/CT Colonography Q 5 years 1993 PNEUMOCOCCAL VACCINE 65+ YEARS (1 of 1 - PCV) 10/08/18 99 ZOSTER VACCINE (1 of 2) 1998 RSV VACCINE (60+ or ) (1 - 1-dose 75+ series) 2023 INFLUENZA VACCINE (#1) 2024 Insurance MEDICARE PART A AND B Care Teams Ux Developer Relationship Specialty Start Date End Date Bulmaro Leung MD [address] [facility] [address] [place] [address] PCP - General Family Practice 06/02/23
[2024-11-01 21:19] LABS: Alanine Aminotransferase 43 U/L (6-50); Albumin Level 3.8 g/dL (3.5-5.1); Alkaline Phosphatase 80 U/L (38-126); Anion Gap 10 mmol/L (4-12); Aspartate Amino Transferase 47 U/L (17-59); Bilirubin,Total 0.9 mg/dL (0.2-1.3); Blood Urea Nitrogen 19 mg/dL (9-20); Calcium 8.7 mg/dL (8.4-10.2); Carbon Dioxide 22 mmol/L (22-30); Chloride 105 mmol/L (98-107); Estimated Glomerular Filt Rate > 60; Glucose 107 mg/dL (65-110); Potassium 4.5 mmol/L (3.4-5.0); Sodium 137 mmol/L (137-145)
== END 2024-11-01 13:33 | disposition home or self-care (01) ==
LOC: ANHLAB 13:33
PROVIDERS: PCP Family Medicine; Visit Provider Family Medicine
DX: I10 Essential (primary) hypertension (principal)
CPT/HCPCS: 36415; 80053

== ENCOUNTER 2024-12-07 11:56 | Outpatient (RCR) | payer OTHER, SELFPAY ==
[2024-10-04 14:09] LABS: INR 2.5; Prothrombin Time 27.7 Seconds (11.1-14.7)
[2024-11-01 14:16] LABS: Prothrombin Time 23.3 Seconds (11.1-14.7)
[2024-11-09 15:55] LABS: INR 2.7; Prothrombin Time 29.2 Seconds (11.1-14.7)
[2024-12-07 14:12] LABS: INR 2.8; Prothrombin Time 29.9 Seconds (11.1-14.7)
== END 2025-01-02 23:59 | disposition home or self-care (01) ==
LOC: ANHLAB 11:56
PROVIDERS: PCP Family Medicine; Visit Provider Physician Assistant
DX: Z51.81 Encounter for therapeutic drug level monitoring (principal); D68.59 Other primary thrombophilia; Z79.01 Long term (current) use of anticoagulants; Z86.711 Personal history of pulmonary embolism
CPT/HCPCS: 36415; 85610

== ENCOUNTER 2025-03-10 11:41 | Outpatient (RCR) | payer OTHER, SELFPAY ==
[2025-01-14 11:11] LABS: INR 3.2; Prothrombin Time 33.1 Seconds (11.1-14.7)
[2025-01-21 13:53] LABS: INR 1.9; Prothrombin Time 21.8 Seconds (11.1-14.7)
[2025-01-31 12:31] LABS: INR 2.3; Prothrombin Time 25.6 Seconds (11.1-14.7)
[2025-03-10 12:31] LABS: INR 2.6; Prothrombin Time 27.4 Seconds (11.1-14.7)
== END 2025-04-14 23:59 | disposition home or self-care (01) ==
LOC: ANHLAB 11:41
PROVIDERS: PCP Family Medicine; Visit Provider Physician Assistant
DX: D68.59 Other primary thrombophilia (principal); Z79.01 Long term (current) use of anticoagulants; Z86.711 Personal history of pulmonary embolism
CPT/HCPCS: 36415; 85610

== ENCOUNTER 2025-05-16 13:08 | Outpatient (CLI) | payer OTHER, SELFPAY ==
--- OUTSIDE RECORDS SUMMARY | 2025-05-16 13:15 | XMS_ITS | Clinical Summary ---
Author Organization [facility] Stephie Montenegrojohn paul Address [address] [address] Care Team Providers Care Nursing Instructor Name Role Phone Bulmaro Leung MD Primary Care Provider [phone] Allergies Active Allergy Reactions Criticality Noted Date [...] 10:22 AM CDT Height 177.8 cm (5' 10) 06/26/2023 10:22 AM CDT Body Mass Index 30.71 06/26/2023 10:22 AM CDT Plan of Treatment Health Maintenance Due Date Last Done Comments DTAP/TDAP/TD VACCINES (1 - Tdap) 1967 PNEUMOCOCCAL VACCINE 50+ YEARS (1 of 1 - PCV) 10/08/18 99 ZOSTER VACCINE (1 of 2) 1998 RSV VACCINE (60+ or ) (1 - 1-dose 75+ series) 2023 INFLUENZA VACCINE (#1) 2025 Insurance MEDICARE PART A AND B Care Teams Nursing Instructor Relationship Specialty Start Date End Date Bulmaro Leung MD [address] [facility] [address] [place] [id number] PCP - General Family Practice 06/02/23
[2025-05-16 13:34] LABS: Hematocrit 42.2 % (42.0-52.0); Hemoglobin 14.3 g/dL (14.0-18.0); Mean Corpuscular HGB Conc 33.9 g/dl (32-36); Mean Corpuscular Hemoglobin 32.4 pg (26-34); Mean Corpuscular Volume 95.5 fl (80-100); Platelet Count Result 339 k/mm3 (150-375); Red Blood Count 4.42 M/mm3 (4.6-6.20); White Blood Count 6.9 K/mm3 (4.5-10.0)
[2025-05-16 13:46] LABS: Hemoglobin A1C 5.9 % (<5.7)
[2025-05-16 14:00] LABS: Alanine Aminotransferase 25 U/L (6-50); Albumin Level 3.9 g/dL (3.5-5.1); Alkaline Phosphatase 67 U/L (38-126); Anion Gap 6 mmol/L (4-12); Aspartate Amino Transferase 33 U/L (17-59); Bilirubin,Total 1.5 mg/dL (0.2-1.3); Blood Urea Nitrogen 23 mg/dL (9-20); Calcium 9.4 mg/dL (8.4-10.2); Carbon Dioxide 24 mmol/L (22-30); Chloride 107 mmol/L (98-107); Cholesterol 122 mg/dL (0-200); Estimated Glomerular Filt Rate 60; Glucose 106 mg/dL (65-110); HDL Direct 38 mg/dL; Potassium 4.2 mmol/L (3.4-5.0); Sodium 137 mmol/L (137-145); Total Protein 7.8 g/dL (6.3-8.2); Triglycerides 66 mg/dL (<150)
[2025-05-16 14:36] LABS: Thyroid Stimulating Hormone 1.240 uIU/mL (0.465-4.680)
[2025-05-16 15:03] LABS: Add Urine Microscopic? YES; Appearance Urine Cloudy (Clear); Glucose Urine UA Negative (Negative); Leukocyte Esterase Ur Negative LEU/UL (Negative); Nitrate Urine Negative (Negative); Non Pathogenic Casts 0-2; Specific Grav Ur 1.012 (1.001-1.035)
== END 2025-05-16 13:09 | disposition home or self-care (01) ==
PROVIDERS: PCP Family Medicine; Visit Provider Family Medicine
DX: E78.5 Hyperlipidemia, unspecified (principal); I10 Essential (primary) hypertension; R73.01 Impaired fasting glucose; R53.83 Other fatigue
CPT/HCPCS: 36415; 80053; 80061; 81001; 83036; 84443; 85027

== ENCOUNTER 2025-06-23 09:27 | Outpatient (RCR) | payer OTHER, SELFPAY ==
[2025-04-15 11:59] LABS: INR 2.6; Prothrombin Time 27.0 Seconds (11.1-14.7)
[2025-05-16 13:49] LABS: INR 2.5; Prothrombin Time 26.6 Seconds (11.1-14.7)
[2025-06-23 10:08] LABS: INR 3.0; Prothrombin Time 30.0 Seconds (11.1-14.7)
== END 2025-07-14 23:59 | disposition home or self-care (01) ==
LOC: ANHLAB 09:27
PROVIDERS: PCP Family Medicine; Visit Provider Physician Assistant
DX: Z51.81 Encounter for therapeutic drug level monitoring (principal); D68.59 Other primary thrombophilia; Z86.711 Personal history of pulmonary embolism; Z79.01 Long term (current) use of anticoagulants
CPT/HCPCS: 36415; 85610